=== PATIENT | male | born 1950 ===

== ENCOUNTER 2020-04-13 11:25 | Day surgery (SDC) | payer OTHER ==
[~2020-04-13] VITALS: Ht 172.7 cm; Wt 139.0 kg
[~2020-04-13 11:25] MED LIST: AMLO5; CBD OIL SL; DOC250; ERGO400; FERRETTS325 MG
[2020-04-13] MEDS ORDERED: GAVILAX17 GM (12:34)
[2020-04-13] MEDS ORDERED: BASAGLAR K100 UNIT/1 (12:35)
[2020-04-13] MEDS ORDERED: FURO40 (12:35)
--- NOTE | 2020-04-13 15:38 | NUR ---
PT IV DC'D INTACT, DRESSED, AMB TO BTR Justin GOLDSMITH, DC'D BY WC WITH SON DRIVING PT HOME
== END 2020-04-13 15:45 | disposition home or self-care (01) ==
LOC: MHTC 11:25
DX: I12.0 Hypertensive chronic kidney disease with stage 5 chronic kidney disease or end stage renal disease (principal); E11.22 Type 2 diabetes mellitus with diabetic chronic kidney disease; N18.6 End stage renal disease; E66.9 Obesity, unspecified; Z68.42 Body mass index [BMI] 45.0-49.9, adult; Z87.891 Personal history of nicotine dependence; Z88.0 Allergy status to penicillin; Z88.1 Allergy status to other antibiotic agents; Z88.8 Allergy status to other drugs, medicaments and biological substances; Z79.899 Other long term (current) drug therapy; Z79.4 Long term (current) use of insulin
CPT/HCPCS: 36558; 76937; 77001; 99152; 99153; C1750; C1769; C1894; J1644; J2250; J3010; J7040; J7050

== ENCOUNTER 2020-07-26 12:55 | Day surgery (SDC) | payer OTHER ==
[~2020-07-26] VITALS: Ht 172.7 cm; Wt 135.4 kg
[~2020-07-26 12:55] MED LIST changes: +Artificial Tear15 ML BOTHEYES; +DEXT40GEL PO; +DOC250 PO; -ERGO400; +FURO40; +GABA100 PO; +GAVILAX17 GM; +LORA10ER PO
--- NOTE | 2020-07-26 17:24 | NUR ---
Patient returned to [facility] Recovery room A&O. Denies pin."just feels a little something in the krook of his arm". dressing D&I to right inner elbow. dressing D&I to Perma cath exchange site.
--- NOTE | 2020-07-26 18:52 | NUR ---
PATIENT DISCHARGED HOME A&O. VERBALIZED UNDERSTANDING OF DISCHARGE INSTRUCTIONS AND PRECAUTIONS. SLING IN PLACE TO RIGHT ARM. DRESSINGS D&I. DENIES DICOMFORT. DISCHARGED VIA WHEEL CHAIR. SON DRIVING PATIENT HOME.
[2020-08-16] MEDS ORDERED: DEX4 GLUCOSE33 G2 PO (19:15)
[2020-08-16] MEDS ORDERED: LORA10ER PO (19:15)
[2020-08-16] MEDS ORDERED: DOC250 PO (19:16)
[2020-08-16] MEDS ORDERED: HOMATROPINE HYDR5 ML BOTHEYES (19:17)
[2020-08-16] MEDS ORDERED: MIRALAX17 GM PO (19:17)
[2020-09-18] MEDS ORDERED: ARTIFICIAL TEAR15 M2 BOTHEYES (11:32)
[2020-09-18] MEDS ORDERED: CLOP75 PO (11:32)
[2020-09-18] MEDS ORDERED: DOCU100 PO (11:33)
[2020-09-18] MEDS ORDERED: FOLIC ACID0.4 MG PO (11:33)
[2020-09-18] MEDS ORDERED: GABA100 PO (11:34)
[2020-09-18] MEDS ORDERED: DEXTROSE PO (11:39)
[2020-09-18] MEDS ORDERED: MIRALAX17 GM PO (11:40)
[2020-09-18] MEDS ORDERED: XARELTO20 MG PO (11:40)
[2020-09-18] MEDS ORDERED: ATOR40TA PO (11:40)
== END 2020-07-26 23:10 | disposition home or self-care (01) ==
LOC: MHTC 12:55
DX: T82.898A Other specified complication of vascular prosthetic devices, implants and grafts, initial encounter (principal); I12.0 Hypertensive chronic kidney disease with stage 5 chronic kidney disease or end stage renal disease; E11.22 Type 2 diabetes mellitus with diabetic chronic kidney disease; N18.6 End stage renal disease; Z88.0 Allergy status to penicillin; Z88.1 Allergy status to other antibiotic agents; Z88.2 Allergy status to sulfonamides; Z88.8 Allergy status to other drugs, medicaments and biological substances; Z20.822 Contact with and (suspected) exposure to COVID-19; Y84.0 Cardiac catheterization as the cause of abnormal reaction of the patient, or of later complication, without mention of misadventure at the time of the procedure
CPT/HCPCS: 36581; 64415; 76937; 99152; 99153; A9270; C1725; C1750; C1769; C1889; C1894; G2170; J1644; J2250; J2405; J3010; J7030; J7040

== ENCOUNTER 2020-08-05 10:32 | Observation (INO) | payer OTHER, MEDICARE ==
[~2020-08-05] VITALS: Ht 172.7 cm; Wt 131.6 kg
[2020-08-05 11:18] LABS: BASOPHILS ABSOLUTE AUTO 0.04 K/mm3 (0.00-0.23); BASOPHILS PERCENT AUTO 1 % (0-2); EOSINOPHILS ABSOLUTE AUTO 0.15 K/mm3 (0.00-0.68); EOSINOPHILS PERCENT AUTO 3 % (0-6); Hematocrit 23.2 % (37.0-53.0); Hemoglobin 7.4 g/dL (13.5-17.5); IMMATURE GRAN ABSOLUTE AUTO 0.02 K/mm3 (0.00-0.10); IMMATURE GRAN PERCENT AUTO 0 % (0-1); LYMPHOCYTES ABSOLUTE AUTO 0.99 K/mm3 (0.84-5.20); LYMPHOCYTES PERCENT AUTO 16 % (21-46); MONOCYTES ABSOLUTE AUTO 0.41 K/mm3 (0.16-1.47); MONOCYTES PERCENT AUTO 7 % (4-13); Mean Corpuscular HGB 30.7 pg (26.0-34.0); Mean Corpuscular HGB Conc 31.9 g/dL (31.5-36.5); Mean Corpuscular Volume 96 fL (80-100); NEUTROPHILS ABSOLUTE AUTO 4.45 K/mm3 (1.96-9.15); NEUTROPHILS PERCENT AUTO 73 % (41-73); Platelet Count 228 K/mm3 (150-400); RDW Standard Deviation 52.8 fL (35.1-46.3); Red Blood Cell Count 2.41 M/mm3 (4.30-5.90); White Blood Cell Count 6.06 K/mm3 (4.00-11.30)
[2020-08-05 11:36] LABS: International Normalized Ratio 1.05; Prothrombin Time Results 11.2 Sec (9.7-11.5)
[2020-08-05 11:40] LABS: Albumin, Blood 3.1 g/dL (3.4-5.0); Albumin/Globulin Ratio 0.7 (0.8-1.8); Bilirubin, Total 0.3 mg/dL (0.1-1.0); Bun/Creatinine Ratio 5.4 (12.0-20.0); Calcium, Blood 7.7 mg/dL (8.5-10.1); Creatinine, Blood 3.16 mg/dL (0.60-1.20); Globulin, Blood 4.3 g/dL (2.2-4.0); Potassium, Blood 3.1 mmol/L (3.5-5.5); Total Protein, Blood 7.4 g/dL (6.4-8.2)
[2020-08-05] MEDS ORDERED: ATOR40TA PO (14:05)
[2020-08-05] MEDS ORDERED: CLOP75 PO (14:06)
[2020-08-05] MEDS ORDERED: XARELTO2.5 M1 PO (14:06)
[2020-08-05] MEDS ORDERED: MIDO5 PO (14:18)
[2020-08-05] MEDS ORDERED: BASAGLAR K100 UNIT/7 SC (14:18)
[2020-08-05] MEDS ORDERED: Rena-Vite Tabl0.8 MG PO (14:18)
[2020-08-05] MEDS ORDERED: Vitamin D2000 UNIT PO (14:19)
[2020-08-05] MEDS ORDERED: CALC.25 PO (14:19)
[2020-08-05 14:58] LABS: Percent Saturation 12.3 % (20.0-50.0)
[2020-08-05] MEDS ORDERED: GABA100 PO (16:58)
--- NOTE | 2020-08-05 17:59 | NUR ---
SHIFT SUMMARY PATIENT ARRIVED TO THE FLOOR LATE THIS SHIFT. PATIENT ALERT AND ORIENTED. PATIENT TRANSFERED INDEPENDENTLY FROM RNEY TO BED. PATIENT AMBULATED TO BATHROOM INDEPENDENTLY. PATIENT DENIES PAIN AT THIS TIME. PATIENT FINISHING 1 UNIT OF RBC'S ON ARRIVAL TO THE UNIT. ADMISSION COMPLETED WITH PATIENT'S COOPERATION. PATIENT CURRENTLY SITTING UP IN BED ON THE TELEPHONE.
[2020-08-05 19:38] LABS: Hematocrit 25.3 % (37.0-53.0); Hemoglobin 7.9 g/dL (13.5-17.5)
[2020-08-06 02:36] LABS: BASOPHILS ABSOLUTE AUTO 0.03 K/mm3 (0.00-0.23); BASOPHILS PERCENT AUTO 0 % (0-2); EOSINOPHILS ABSOLUTE AUTO 0.17 K/mm3 (0.00-0.68); EOSINOPHILS PERCENT AUTO 2 % (0-6); Hematocrit 25.4 % (37.0-53.0); IMMATURE GRAN ABSOLUTE AUTO 0.01 K/mm3 (0.00-0.10); IMMATURE GRAN PERCENT AUTO 0 % (0-1); LYMPHOCYTES ABSOLUTE AUTO 1.36 K/mm3 (0.84-5.20); LYMPHOCYTES PERCENT AUTO 18 % (21-46); MONOCYTES ABSOLUTE AUTO 0.68 K/mm3 (0.16-1.47); MONOCYTES PERCENT AUTO 9 % (4-13); Mean Corpuscular HGB 30.3 pg (26.0-34.0); Mean Corpuscular HGB Conc 31.5 g/dL (31.5-36.5); Mean Corpuscular Volume 96 fL (80-100); Mean Platelet Volume 10.4 fL (9.1-12.4); NEUTROPHILS ABSOLUTE AUTO 5.31 K/mm3 (1.96-9.15); NEUTROPHILS PERCENT AUTO 70 % (41-73); Platelet Count 226 K/mm3 (150-400); RDW Standard Deviation 52.8 fL (35.1-46.3); Red Blood Cell Count 2.64 M/mm3 (4.30-5.90); White Blood Cell Count 7.56 K/mm3 (4.00-11.30)
[2020-08-06 02:52] LABS: Bun/Creatinine Ratio 4.7 (12.0-20.0); Calcium, Blood 7.4 mg/dL (8.5-10.1); Creatinine, Blood 5.16 mg/dL (0.60-1.20); Potassium, Blood 3.6 mmol/L (3.5-5.5)
--- NOTE | 2020-08-06 06:34 | NUR ---
SHIFT SUMMARY- PT. A&O, PLEASANT AND COOPERATIVE WITH CARE. HAD NO ACUTE CHANGES OVERNIGHT, NO COMPLAINTS OF PAIN OR DISCOMFORT. PT. REPORTED 1 NORMAL BM WITH NO BLOOD. APPEARED TO HAVE SLEPT COMFORTABLE T/O THE NIGHT WITH CPAP ON. NO APPARENT DISTRESS NOTED. VSS. CALL LIGHT WITHIN REACH AND SIDE RAILS UPX2. WILL CONT TO MONITOR.
[2020-08-06 10:22] LABS: Hematocrit 25.9 % (37.0-53.0); Hemoglobin 8.2 g/dL (13.5-17.5)
--- NOTE | 2020-08-06 16:55 | NUR ---
DISCHARGE SUMMARY PATIENT ALERT AND ORIENTED, INDEPENDENT IN THE ROOM THIS SHIFT. PATIENT COOPERATIVE WITH CARE. PATIENT AMBULATED IN THE HALLWAY MULTIPLE TIMES THIS SHIFT. PATIENT REPORTED MULTIPLE BOWEL MOVEMENTS THIS SHIFT, FREE FROM BLOOD. PATIENT PROVIDED WITH DISCHARGE AND MEDICATION INSTRUCTIONS. PATIENT QUESTIONS ANSWERED AT THIS TIME. IV REMOVED PRIOR TO DISCHARE. PATIENT'S CPAP WITH PATIENT UPON DISCHARGE. PATIENT TO SON'S VEHICLE VIA WHEELCHAIR BY NURSE.
[2020-08-16] MEDS ORDERED: DEX4 GLUCOSE33 G2 PO (19:15)
[2020-08-16] MEDS ORDERED: LORA10ER PO (19:15)
[2020-08-16] MEDS ORDERED: DOC250 PO (19:16)
[2020-08-16] MEDS ORDERED: HOMATROPINE HYDR5 ML BOTHEYES (19:17)
[2020-08-16] MEDS ORDERED: MIRALAX17 GM PO (19:17)
[2020-09-18] MEDS ORDERED: ARTIFICIAL TEAR15 M2 BOTHEYES (11:32)
[2020-09-18] MEDS ORDERED: CLOP75 PO (11:32)
[2020-09-18] MEDS ORDERED: DOCU100 PO (11:33)
[2020-09-18] MEDS ORDERED: FOLIC ACID0.4 MG PO (11:33)
[2020-09-18] MEDS ORDERED: GABA100 PO (11:34)
[2020-09-18] MEDS ORDERED: DEXTROSE PO (11:39)
[2020-09-18] MEDS ORDERED: XARELTO20 MG PO (11:40)
[2020-09-18] MEDS ORDERED: ATOR40TA PO (11:40)
[2020-09-18] MEDS ORDERED: MIRALAX17 GM PO (11:40)
== END 2020-08-06 16:35 | disposition home or self-care (01) ==
LOC: ER 10:32 → MEDS 10:33 → ERHOLD 10:33 → MEDS 16:59
PROVIDERS: Physician Assistant; ADMIT Internal Medicine
DX: D62 Acute posthemorrhagic anemia (principal); K92.1 Melena; K64.8 Other hemorrhoids; E11.22 Type 2 diabetes mellitus with diabetic chronic kidney disease; N18.6 End stage renal disease; E66.9 Obesity, unspecified; G47.33 Obstructive sleep apnea (adult) (pediatric); E78.5 Hyperlipidemia, unspecified; N40.0 Benign prostatic hyperplasia without lower urinary tract symptoms; K22.70 Barrett's esophagus without dysplasia; E87.6 Hypokalemia; M19.90 Unspecified osteoarthritis, unspecified site; Z79.4 Long term (current) use of insulin; Z99.2 Dependence on renal dialysis; Z86.73 Personal history of transient ischemic attack (TIA), and cerebral infarction without residual deficits; Z87.891 Personal history of nicotine dependence; Z86.010 Personal history of colon polyps; Z88.1 Allergy status to other antibiotic agents; Z88.0 Allergy status to penicillin; Z88.2 Allergy status to sulfonamides; Z88.8 Allergy status to other drugs, medicaments and biological substances; Z68.41 Body mass index [BMI] 40.0-44.9, adult
CPT/HCPCS: 36415; 36430; 80048; 80053; 82272; 82607; 82728; 82746; 82947; 83540; 83550; 85014; 85018; 85025; 85610; 86850; 86900; 86901; 86923; 99285-25; A9270; G0378; J7030; P9016

== ENCOUNTER 2020-08-17 08:14 | Inpatient (IN) | payer OTHER, MEDICARE ==
[~2020-08-17] VITALS: Ht 172.7 cm; Wt 132.5 kg
[~2020-08-17 08:14] MED LIST changes: +ATOR40TA PO; +BASAGLAR K100 UNIT/7 SC; +CALC.25 PO; +CLOP75 PO; +DEX4 GLUCOSE33 G2 PO; +HOMATROPINE HYDR5 ML BOTHEYES; +MIDO5 PO; +MIRALAX17 GM PO; +Rena-Vite Tabl0.8 MG PO; +Vitamin D2000 UNIT PO; +XARELTO2.5 M1 PO
--- NOTE | 2020-08-17 09:50 | NUR ---
DR CURIEL TO ROOM DISCUSSING PLAN OF CARE. NEW LAB ORDERS IN PLACE.
[2020-08-17 10:06] LABS: Hematocrit 26.1 % (37.0-53.0); Hemoglobin 8.2 g/dL (13.5-17.5)
[2020-08-17 10:20] LABS: International Normalized Ratio 1.01; Prothrombin Time Results 10.8 Sec (9.7-11.5)
--- NOTE | 2020-08-17 10:55 | NUR ---
PT RESTING COMFORTABLY. PT ADVISED TODAY'S PROCEDURE FOR PD CATHETER PLACEMENT WILL BE CANCELLED D/T LAB RESULTS. DR CURIEL IS WORKING ON GI CONSULT AT THIS TIME. VSS. NADN. PT DENIES NEEDS. CALL LIGHT WITHIN REACH.
--- NOTE | 2020-08-17 12:09 | NUR ---
GI CONSULT REQUESTED WITH DR MEHTA. PT RESTING COMFORTABLY. VSS. VERMA.
--- NOTE | 2020-08-17 13:33 | NUR ---
DR. CURIEL IN TO SEE PT, PLAN IS TO ADMIT OVERNIGHT AND HAVE GI CONSULT WITH POSSIBLE SCOPE TOMORROW.
--- NOTE | 2020-08-17 17:45 | NUR ---
PT BEING ADMITTED TO ROOM 360. HANDOFF REPORT GIVEN TO NURSE, PT TO MEDICAL FLOOR PER W/C WITH BELONGINGS IN HAND.
[2020-08-17 18:32] LABS: Hematocrit 27.2 % (37.0-53.0); Hemoglobin 8.4 g/dL (13.5-17.5)
[2020-08-17 18:48] LABS: Albumin, Blood 3.3 g/dL (3.4-5.0); Anion Gap 7 mmol/L (6-16); Blood Urea Nitrogen 54 mg/dL (8-24); Bun/Creatinine Ratio 7.2 (12.0-20.0); CO2, Blood 26 mmol/L (21-32); Chloride, Blood 106 mmol/L (98-108); Creatinine, Blood 7.45 mg/dL (0.60-1.20); Glomerular Filtration Rate 8 (60-); Glucose, Blood 99 mg/dL (70-99); Phosphorus, Blood 4.6 mg/dL (2.5-4.9); Potassium, Blood 4.6 mmol/L (3.5-5.5); Sodium, Blood 139 mmol/L (136-145)
--- NOTE | 2020-08-17 19:28 | NUR ---
ASSUMED CARE OF PATIENT UPON HIS ARRIVAL FROM THE [facility]. A&O X 4, PLEASANT. AMBULATES WITH CANE. DENIES PAIN. GIVEN NON-RED JELLO, WATER. VERBALIZED UNDERSTANDING OF PLAN FOR COLONOSCOPY TOMORROW. REPORT GIVEN TO Олег LOPEZ RN.
--- NOTE | 2020-08-17 19:53 | NUR ---
CALL TO DR. COTTO ATTEMPTED TO CONTACT DR. COTTO IN REGARDS TO PT MISSED HEMODIALYSIS TX TODAY D/T BEING ADMITTED IN HOSPITAL. AWAITING CALL BACK.
--- NOTE | 2020-08-17 23:07 | NUR ---
AT 2304, SPOKE TO EGG PROCESSING SUPERVISOR YANICK, NOTIFIED OF PT STATUS. PER PATRICK HERNDON, SHE WILL PUT PATIENT ON LIST OF DIALYSIS TX TOMORROW 08/17/2020.
[2020-08-18 05:02] LABS: Hematocrit 25.4 % (37.0-53.0)
--- NOTE | 2020-08-18 05:28 | NUR ---
CATTLE TESTER SUMMARY PT A&OX4, ABLE TO MAKE NEEDS KNOWN. PLEASANT AND COOPERATIVE TO CARE. NO C/O PAIN OR ANY DISCOMFORT THIS SHIFT. NO C/O CP, SOB, OR N&V. PT USES CPAP AT NIGHT. PT HAD 1 EPISODE OF HAVING BLOODY STOOL THIS SHIFT, APPROX 2304, PT REPORTED THAT HE HAD BLOOD IN HIS STOOL. VISIBLE BRIGHT RED BLOOD MIXED WITH FORMED STOOL NOTED IN TOILET, UNABLE TO MEASURE D/T STOOL MIXED WITH TOILET WATER. PT DENIES ANY ABDOMINAL DISCOMFORT. DENIES N&V. PT IS SCHEDULED TO HAVE A COLONOSCOPY TODAY. PT CALM AND RESTED IN BED T/O SHIFT, BED AT LOWEST POSITION. CALL LIGHT WITHIN REACH.
[2020-08-18 06:48] LABS: Influenza A, PCR Negative (NEGATIVE); Influenza B, PCR Negative (NEGATIVE); Resp Syncytial Virus, PCR Negative (NEGATIVE); SARS-Cov-2 (COVID-19) PCR, MMC Negative (NEGATIVE)
--- NOTE | 2020-08-18 09:00 | NUR ---
PT PLEASANT COOP A/O X3. STATE CONCERNED ABOUT THEIR DOG PENDING . DENIES PAIN. 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 COVERED AND DRY. STATES FISTULA R A/C AREA, STATES HAS NOT BEEN USED. PLACED RECENTLY. H/R REG, NO MURMER NOTED. NO TELE. LUNGS CLEAR, RESP EASY, UNLABORED. ON R/A. BT X4. PRESENTLY DRINKING GYLYTELY. GOING TO BATHROOM REGULARLY. NOT CLEAR AT THIS TIME. VISIBLE STOOL WITH SOME BLOOD PER JOSE ARMANDO RN. VOIDS PER BATHROOM, INDEPENDANTLY. BED IN LOW POSITION, CALL LITE IN REACH, CALLS APPROP
--- NOTE | 2020-08-18 10:57 | NUR ---
[address] ROBERTS IN ROOM. ADVISED ABOUT 1 CUP JELLIED BLOOD IN STOOL. ADVISED, NO NEW ORDERS, ASKS WE MAKE NPO 1100.
--- NOTE | 2020-08-18 10:58 | NUR ---
STOOL PREP, RUNNING CLEAR WITH YELLOW TINT NOTED. NO VISIBLE BLOOD NOTED LAST FEW STOOLS.
--- NOTE | 2020-08-18 13:44 | NUR ---
TO DAY SURG AT 1343
--- NOTE | 2020-08-18 14:33 | NUR ---
Patient up to Ambulate independently. Gait steady. History, Chart, Medications and Allergies reviewed before start of procedure.Patient confirms NPO status and agrees with scheduled surgery. Pre-Op teaching done. Pt verbalizes understanding.
--- NOTE | 2020-08-18 15:02 | NUR ---
08/18/20 1502 Liberty Reed Patient to ENDO 1. CARE BY . SEE PAPER ANESTHESIA RECORD.
--- NOTE | 2020-08-18 16:01 | NUR ---
PT JUST BACK FROM DAY SURG. ALERT TALKING. REPORT FROM GINNY NGUYEN. 1 POLYP, 500 N/S ADMIN. 330 MG PROPOFOL. STATES V/S STABLE.
--- NOTE | 2020-08-18 18:53 | NUR ---
PT QUITE PLEASANT TODAY. WENT TO DAY SURG FOR COLONOSCOPY. REMOVED POLYP X1. PT RETURNED TO ROOM. IMMEDIATELY ON DIALYSIS IN ROOM. PT NO C/O PAIN. NO OTHER CONCERNS AT THIS TIIME. BED IN LOW POSITION, CALL LITE IN REACH, CALLS APROP
--- NOTE | 2020-08-19 04:35 | NUR ---
HAT MODEL SUMMARY PT A&OX4, ABLE TO MAKE NEEDS KNOWN. PLEASANT AND COOPERATIVE TO CARE. NO C/O PAIN OR ANY DISCOMFORT THIS SHIFT. NO C/O CP, SOB, OR N&V. PT HAD DIALYSIS EARLY IN THE SHIFT, NO ISSUES OR ANY COMPLAINTS NOTED FROM PT AFTER DIALYSIS. PT INDEPENDENT IN THE ROOM. CALM AND RESTED IN BED T/O SHIFT. BED AT LOWEST POSITION. CALL LIGHT WITHIN REACH. NO ACUTE CHANGES NOTED.
[2020-08-19 05:04] LABS: BASOPHILS ABSOLUTE AUTO 0.03 K/mm3 (0.00-0.23); BASOPHILS PERCENT AUTO 1 % (0-2); EOSINOPHILS PERCENT AUTO 4 % (0-6); Hematocrit 23.8 % (37.0-53.0); Hemoglobin 7.6 g/dL (13.5-17.5); IMMATURE GRAN ABSOLUTE AUTO 0.01 K/mm3 (0.00-0.10); IMMATURE GRAN PERCENT AUTO 0 % (0-1); LYMPHOCYTES ABSOLUTE AUTO 1.17 K/mm3 (0.84-5.20); LYMPHOCYTES PERCENT AUTO 22 % (21-46); MONOCYTES ABSOLUTE AUTO 0.48 K/mm3 (0.16-1.47); MONOCYTES PERCENT AUTO 9 % (4-13); Mean Corpuscular HGB 29.7 pg (26.0-34.0); Mean Corpuscular HGB Conc 31.9 g/dL (31.5-36.5); Mean Corpuscular Volume 93 fL (80-100); Mean Platelet Volume 10.8 fL (9.1-12.4); NEUTROPHILS ABSOLUTE AUTO 3.41 K/mm3 (1.96-9.15); NEUTROPHILS PERCENT AUTO 64 % (41-73); Platelet Count 189 K/mm3 (150-400); RDW Coefficient Variation 13.1 % (11.7-14.2); RDW Standard Deviation 44.7 fL (35.1-46.3); Red Blood Cell Count 2.56 M/mm3 (4.30-5.90)
[2020-08-19 06:16] LABS: Albumin, Blood 2.9 g/dL (3.4-5.0); Albumin/Globulin Ratio 0.7 (0.8-1.8); Bilirubin, Total 0.3 mg/dL (0.1-1.0); Bun/Creatinine Ratio 5.5 (12.0-20.0); Calcium, Blood 7.5 mg/dL (8.5-10.1); Creatinine, Blood 6.41 mg/dL (0.60-1.20); Globulin, Blood 3.9 g/dL (2.2-4.0); Magnesium, Blood 1.9 mg/dL (1.6-2.4); Percent Saturation 12.8 % (20.0-50.0); Phosphorus, Blood 4.7 mg/dL (2.5-4.9); Total Protein, Blood 6.8 g/dL (6.4-8.2)
--- NOTE | 2020-08-19 16:38 | NUR ---
SHIFT SUMMARY PT A&O AND ABLE TO MAKE NEEDS KNOWN AND ACCEPTING OF CARE. PT IS INDEPENDENT IN ROOM. PT TOOK A SHOWER THIS SHIFT. PT COMPLAINED OF PAIN IN THE RECTUM AND HAD 1 BLOODY BM. HE DENIES N/V. IV FLUSHED AND PATIENT. PLAN IS FOR PT TO HAVE DIALYSIS 08/20 AND D/C AFTERWARDS. PT IN ROOM WITH FAMILY VISITING. CALL LIGHT W/IN REACH.
--- NOTE | 2020-08-19 23:08 | NUR ---
PT COMPLAINING OF MULTIPLE BLOODY BOWEL MOVEMENTS AND FEELINGS OF INDIGESTION. HE STATES THAT WHEN HE WAS WALKING BACK FROM THE BATHROOM HE FELT VERY DIZZY AND LIGHTHEADED, TO THE POINT HE FELT HE MAY PASS OUT. DR. COTTO NOTIFIED AND ORDER OBTAINED TO DRAW STAT H&H AND CALL BACK WITH RESULTS.
[2020-08-19 23:21] LABS: Hematocrit 24.5 % (37.0-53.0)
[2020-08-20 04:47] LABS: Hematocrit 22.9 % (37.0-53.0); Hemoglobin 7.5 g/dL (13.5-17.5)
[2020-08-20 05:06] LABS: Anion Gap 6 mmol/L (6-16); Blood Urea Nitrogen 45 mg/dL (8-24); Bun/Creatinine Ratio 5.6 (12.0-20.0); CO2, Blood 28 mmol/L (21-32); Calcium, Blood 7.6 mg/dL (8.5-10.1); Chloride, Blood 103 mmol/L (98-108); Creatinine, Blood 7.98 mg/dL (0.60-1.20); Glomerular Filtration Rate 7 (60-); Glucose, Blood 137 mg/dL (70-99); Magnesium, Blood 2.2 mg/dL (1.6-2.4); Phosphorus, Blood 5.7 mg/dL (2.5-4.9); Sodium, Blood 137 mmol/L (136-145)
--- NOTE | 2020-08-20 07:05 | NUR ---
SHIFT SUMMARY: "ANDI" IS A&OX4. VSS. HE REPORTS FEELING SIGNIFICANTLY BETTER THIS MORNING. HE STATES THAT THE ABDOMINAL DISCOMFORT HAS RESOLVED AND THAT THE DIAPHORESIS RESOLVED. HE HAS NOT ATTEMPTED TO GET UP AND WAS REMINDED THAT THE BED ALARM IS ON TO REMIND HIM TO CALL STAFF BEFORE TRANSFERRING D/T HIS FEELING OF IMPENDING SYNCOPE. HE DID NOT HAVE A SYNCOPAL EPISODE. HE REPORTED THREE BOWEL MOVEMENTS THIS SHIFT WHICH WERE BLOODY. IV TO L AC PATENT. HE DID WEAR THE CPAP DURING THE NIGHT. HE IS LYING IN BED WITH THE CALL LIGHT IN REACH. HE DOES USE THE CALL LIGHT APPROPRIATELY. WILL REPORT TO DAY SHIFT RN.
[2020-08-20] MEDS ORDERED: MIRALAX17 GM PO (13:39)
--- NOTE | 2020-08-20 14:33 | NUR ---
DISCHARGE DISCHARGE MEDICATIONS AND INSTRUCTIONS EXPLAINED TO PATIENT. PATIENT STATED UNDERSTANDING. PATIENT TO CALL PCP FOR FOLLOW UP ON FRIDAY. DIALYSIUS AT [facility] ON FRIDAY. IV REMOVED WITHOUT ISSUE. BELONGINGS WITH PATIENT. PATIENT TRANSFERED TO PRIVATE VEHICLE VIA WHEELCHAIR.
[2020-09-18] MEDS ORDERED: ARTIFICIAL TEAR15 M2 BOTHEYES (11:32)
[2020-09-18] MEDS ORDERED: CLOP75 PO (11:32)
[2020-09-18] MEDS ORDERED: DOCU100 PO (11:33)
[2020-09-18] MEDS ORDERED: FOLIC ACID0.4 MG PO (11:33)
[2020-09-18] MEDS ORDERED: GABA100 PO (11:34)
[2020-09-18] MEDS ORDERED: DEXTROSE PO (11:39)
[2020-09-18] MEDS ORDERED: XARELTO20 MG PO (11:40)
[2020-09-18] MEDS ORDERED: MIRALAX17 GM PO (11:40)
[2020-09-18] MEDS ORDERED: ATOR40TA PO (11:40)
== END 2020-08-20 14:24 | disposition home or self-care (01) | DRG 393 ==
LOC: MHTC 08:14 → MEDS 14:00
PROVIDERS: Internal Medicine Gastroenterology; Internal Medicine Nephrology; Radiology Diagnostic Radiology; ADMIT Internal Medicine
PROC: 5A1D70Z Performance of Urinary Filtration, Intermittent, Less than 6 Hours Per Day (ICD-10-PCS; 2020-08-18)
PROC: 0DBL8ZZ Excision of Transverse Colon, Via Natural or Artificial Opening Endoscopic (ICD-10-PCS; principal; 2020-08-18 09:30)
PROC: 5A1D70Z Performance of Urinary Filtration, Intermittent, Less than 6 Hours Per Day (ICD-10-PCS; 2020-08-20)
DX: K64.4 Residual hemorrhoidal skin tags (principal); N18.6 End stage renal disease; D62 Acute posthemorrhagic anemia; Z68.42 Body mass index [BMI] 45.0-49.9, adult; J30.9 Allergic rhinitis, unspecified; E11.22 Type 2 diabetes mellitus with diabetic chronic kidney disease; Z79.4 Long term (current) use of insulin; E66.01 Morbid (severe) obesity due to excess calories; Z99.2 Dependence on renal dialysis; E88.09 Other disorders of plasma-protein metabolism, not elsewhere classified; K57.30 Diverticulosis of large intestine without perforation or abscess without bleeding; N40.0 Benign prostatic hyperplasia without lower urinary tract symptoms
CPT/HCPCS: 0241U; 36415; 36430; 80053; 80069; 82607; 82728; 82746; 82947; 83540; 83550; 83735; 84100; 85014; 85018; 85025; 85610; 86850; 86900; 86901; 86923; 88305; 93005; 93010; A9270; J0881; J2405; J2704; J7030; P9016

== ENCOUNTER 2020-08-23 00:37 | Day surgery (SDC) | payer OTHER, MEDICARE ==
[2020-08-23] MEDS ORDERED: RENAL VITAMIN0.8 MG PO (07:57)
--- NOTE | 2020-08-23 08:14 | NUR ---
IV START GALEN CHUN RN TRAINING
--- NOTE | 2020-08-23 08:18 | NUR ---
PT SELF ADMINISTERED MIDODRINE @ 0814 FOR BP UNDER 130. PER HIS INSTUCTIONS FROM HIS MD.
[2020-09-18] MEDS ORDERED: ARTIFICIAL TEAR15 M2 BOTHEYES (11:32)
[2020-09-18] MEDS ORDERED: CLOP75 PO (11:32)
[2020-09-18] MEDS ORDERED: FOLIC ACID0.4 MG PO (11:33)
[2020-09-18] MEDS ORDERED: DOCU100 PO (11:33)
[2020-09-18] MEDS ORDERED: GABA100 PO (11:34)
[2020-09-18] MEDS ORDERED: DEXTROSE PO (11:39)
[2020-09-18] MEDS ORDERED: XARELTO20 MG PO (11:40)
[2020-09-18] MEDS ORDERED: MIRALAX17 GM PO (11:40)
[2020-09-18] MEDS ORDERED: ATOR40TA PO (11:40)
== END 2020-08-23 09:55 | disposition home or self-care (01) ==
LOC: ATC 00:37
DX: D62 Acute posthemorrhagic anemia (principal); N18.6 End stage renal disease; E11.22 Type 2 diabetes mellitus with diabetic chronic kidney disease; K22.70 Barrett's esophagus without dysplasia; E87.6 Hypokalemia; N40.0 Benign prostatic hyperplasia without lower urinary tract symptoms; G47.33 Obstructive sleep apnea (adult) (pediatric); E78.5 Hyperlipidemia, unspecified; E66.9 Obesity, unspecified; Z88.1 Allergy status to other antibiotic agents; Z99.89 Dependence on other enabling machines and devices; Z99.2 Dependence on renal dialysis; Z88.0 Allergy status to penicillin; Z88.2 Allergy status to sulfonamides; Z88.8 Allergy status to other drugs, medicaments and biological substances; Z79.4 Long term (current) use of insulin; Z79.02 Long term (current) use of antithrombotics/antiplatelets; Z79.01 Long term (current) use of anticoagulants
CPT/HCPCS: 36415; 36430; 86850; 86900; 86901; 86923; J7050; P9016

== ENCOUNTER 2020-09-09 00:27 | Day surgery (SDC) | payer OTHER, MEDICARE ==
[~2020-09-09 00:27] MED LIST changes: +RENAL VITAMIN0.8 MG PO
[2020-09-18] MEDS ORDERED: ARTIFICIAL TEAR15 M2 BOTHEYES (11:32)
[2020-09-18] MEDS ORDERED: CLOP75 PO (11:32)
[2020-09-18] MEDS ORDERED: FOLIC ACID0.4 MG PO (11:33)
[2020-09-18] MEDS ORDERED: DOCU100 PO (11:33)
[2020-09-18] MEDS ORDERED: GABA100 PO (11:34)
[2020-09-18] MEDS ORDERED: DEXTROSE PO (11:39)
[2020-09-18] MEDS ORDERED: MIRALAX17 GM PO (11:40)
[2020-09-18] MEDS ORDERED: ATOR40TA PO (11:40)
[2020-09-18] MEDS ORDERED: XARELTO20 MG PO (11:40)
== END 2020-09-09 17:45 | disposition home or self-care (01) ==
LOC: ATC 00:27
DX: D62 Acute posthemorrhagic anemia (principal); E11.22 Type 2 diabetes mellitus with diabetic chronic kidney disease; N18.6 End stage renal disease; E66.9 Obesity, unspecified; G47.33 Obstructive sleep apnea (adult) (pediatric); M19.90 Unspecified osteoarthritis, unspecified site; Z99.2 Dependence on renal dialysis; Z88.1 Allergy status to other antibiotic agents; Z88.0 Allergy status to penicillin; Z88.2 Allergy status to sulfonamides; Z88.8 Allergy status to other drugs, medicaments and biological substances; Z79.4 Long term (current) use of insulin; Z86.010 Personal history of colon polyps; Z87.19 Personal history of other diseases of the digestive system
CPT/HCPCS: 36415; 36430; 86850; 86900; 86901; 86923; J7050; P9016

== ENCOUNTER 2020-09-20 08:38 | Day surgery (SDC) | payer OTHER, MEDICARE ==
[~2020-09-20] VITALS: Ht 172.7 cm; Wt 132.6 kg
[~2020-09-20 08:38] MED LIST changes: +ARTIFICIAL TEAR15 M2 BOTHEYES; +DEXTROSE PO; +DOCU100 PO; +FOLIC ACID0.4 MG PO; +XARELTO20 MG PO
[2020-09-20] MEDS ORDERED: ALLERCLEAR10 MG PO (09:21)
--- NOTE | 2020-09-20 09:50 | NUR ---
History, Chart, Medications and Allergies reviewed before start of procedure. Lungs clear T/O to Auscultation. Pre-Op teaching done. Pt verbalizes understanding.
[2020-09-20 10:12] LABS: BASOPHILS ABSOLUTE AUTO 0.05 K/mm3 (0.00-0.23); BASOPHILS PERCENT AUTO 1 % (0-2); EOSINOPHILS ABSOLUTE AUTO 0.16 K/mm3 (0.00-0.68); EOSINOPHILS PERCENT AUTO 2 % (0-6); Hematocrit 28.2 % (37.0-53.0); Hemoglobin 9.1 g/dL (13.5-17.5); IMMATURE GRAN ABSOLUTE AUTO 0.02 K/mm3 (0.00-0.10); IMMATURE GRAN PERCENT AUTO 0 % (0-1); LYMPHOCYTES ABSOLUTE AUTO 1.07 K/mm3 (0.84-5.20); LYMPHOCYTES PERCENT AUTO 16 % (21-46); MONOCYTES ABSOLUTE AUTO 0.57 K/mm3 (0.16-1.47); MONOCYTES PERCENT AUTO 8 % (4-13); Mean Corpuscular HGB 29.1 pg (26.0-34.0); Mean Corpuscular HGB Conc 32.3 g/dL (31.5-36.5); Mean Corpuscular Volume 90 fL (80-100); Mean Platelet Volume 10.5 fL (9.1-12.4); NEUTROPHILS ABSOLUTE AUTO 5.05 K/mm3 (1.96-9.15); NEUTROPHILS PERCENT AUTO 73 % (41-73); Platelet Count 223 K/mm3 (150-400); RDW Coefficient Variation 14.4 % (11.7-14.2); RDW Standard Deviation 46.5 fL (35.1-46.3); Red Blood Cell Count 3.13 M/mm3 (4.30-5.90); White Blood Cell Count 6.92 K/mm3 (4.00-11.30)
[2020-09-20 10:28] LABS: Bun/Creatinine Ratio 5.6 (12.0-20.0); Calcium, Blood 7.4 mg/dL (8.5-10.1); Creatinine, Blood 6.91 mg/dL (0.60-1.20); Potassium, Blood 4.3 mmol/L (3.5-5.5)
--- NOTE | 2020-09-20 15:12 | NUR ---
Patient up to Ambulate WITH PERSONAL CANE AND STAND BY ASSIST FROM RN. STEADY GAIT. Discharge instructions reviewed with patient. Patient verbalizes understanding. Copy given to patient to take home. REVIEWED WITH SON VIA TELEPHONE PER PT REQUEST. Discharged via wheelchair to private car for ride home WITH SON. PT GIVEN SITZ BATH AND CLEANING BOTTLE AND INSTRUCTED ON USE. PERIPADS GIVEN PER PT REQUEST.
== END 2020-09-20 15:02 | disposition home or self-care (01) ==
LOC: ORSCMMR 08:38 → ORD 10:00 → ORSCMMR 15:02
PROVIDERS: Surgery
PROC: 06BY0ZC Excision of Hemorrhoidal Plexus, Open Approach (ICD-10-PCS; principal; 2020-09-20 10:00)
DX: K64.4 Residual hemorrhoidal skin tags (principal); D64.9 Anemia, unspecified; K64.8 Other hemorrhoids; I10 Essential (primary) hypertension; I25.2 Old myocardial infarction; I25.10 Atherosclerotic heart disease of native coronary artery without angina pectoris; K22.70 Barrett's esophagus without dysplasia; E66.9 Obesity, unspecified; Z68.41 Body mass index [BMI] 40.0-44.9, adult; G47.33 Obstructive sleep apnea (adult) (pediatric); F51.9 Sleep disorder not due to a substance or known physiological condition, unspecified; E11.9 Type 2 diabetes mellitus without complications; Z79.4 Long term (current) use of insulin; Z79.01 Long term (current) use of anticoagulants; Z79.899 Other long term (current) drug therapy
CPT/HCPCS: 80048; 82947; 85025; 88304; J0694; J2250; J2405; J2765; J3010; J7030

== ENCOUNTER 2020-09-27 00:12 | Day surgery (SDC) | payer OTHER, MEDICARE ==
[~2020-09-27 00:12] MED LIST changes: +ALLERCLEAR10 MG PO
== END 2020-09-27 17:35 | disposition home or self-care (01) ==
LOC: ATC 00:12
DX: D50.9 Iron deficiency anemia, unspecified (principal); E11.22 Type 2 diabetes mellitus with diabetic chronic kidney disease; I12.0 Hypertensive chronic kidney disease with stage 5 chronic kidney disease or end stage renal disease; N18.6 End stage renal disease; Z79.4 Long term (current) use of insulin; Z88.1 Allergy status to other antibiotic agents; Z88.0 Allergy status to penicillin; Z88.2 Allergy status to sulfonamides; Z88.8 Allergy status to other drugs, medicaments and biological substances; Z99.2 Dependence on renal dialysis
CPT/HCPCS: 36415; 36430; 86850; 86900; 86901; 86923; J7050; P9016

== ENCOUNTER → 2021-03-13 | Outpatient (CLI) | payer OTHER, MEDICARE | END | disposition home or self-care (01) | LOC: LAB DAV 09:57 | DX: M10.021 Idiopathic gout, right elbow (principal) | CPT/HCPCS: 84550 ==

== ENCOUNTER 2021-10-22 10:25 | Day surgery (SDC) | payer OTHER ==
[~2021-10-22] VITALS: Ht 172.7 cm; Wt 138.0 kg
[2021-10-22] MEDS ORDERED: SEVEC800 PO (11:08)
[2021-10-22] MEDS ORDERED: Calcium Acetat667 MG PO (11:09)
--- NOTE | 2021-10-22 12:42 | NUR ---
PATIENT RETURNED FROM THE LAB. DRESSING TO THE RIGHT UPPER CHEST WALL C/D/I. WILFRIDO HAD NAUSEA IN THE LAB BUT STATES "IS BETTER NOW". WATER PLACED AT THE BEDSIDE. CALL LIGHT IN REACH. MONITOR APPLIED TO PATIENT. VVS. SIDE RAILS UP X TWO. SBAR RECEIVED FROM PATRICK MCDUFFIE AND OCTOBER, RT.
--- NOTE | 2021-10-22 13:17 | NUR ---
PATIENT SITTING UP ON THE SIDE OF THE BED. OFF THE MONITOR. LUNCH TRAY SERVED. CALL LANCE GTZ AND SET UP FOR DISCHARGE AT 1345 AT THE [facility].
--- NOTE | 2021-10-22 13:35 | NUR ---
PT AMB TO BATHROOM, GAIT STEADY.
--- NOTE | 2021-10-22 13:40 | NUR ---
PT DRESSED SELF WITHOUT ISSUE, SITE UNCHANGED; IV REMOVED-CANNULA INTACT.
--- NOTE | 2021-10-22 13:46 | NUR ---
PT RECEIVED DISCHARGE INSTRUCTIONS, MED LIST AND AFTER CARE INSTRUCTIONS; VERBALIZED GOOD UNDERSTANDING. PT LEFT FACILITY VIA W/C, CONDITION STABLE.
== END 2021-10-22 13:46 | disposition home or self-care (01) ==
LOC: MHTC 10:25
DX: T82.848A Pain due to vascular prosthetic devices, implants and grafts, initial encounter (principal); I12.0 Hypertensive chronic kidney disease with stage 5 chronic kidney disease or end stage renal disease; E11.22 Type 2 diabetes mellitus with diabetic chronic kidney disease; N18.6 End stage renal disease; I25.10 Atherosclerotic heart disease of native coronary artery without angina pectoris; E78.5 Hyperlipidemia, unspecified; G47.33 Obstructive sleep apnea (adult) (pediatric); M19.90 Unspecified osteoarthritis, unspecified site; E66.9 Obesity, unspecified; Y82.8 Other medical devices associated with adverse incidents; Z99.2 Dependence on renal dialysis; Z79.4 Long term (current) use of insulin; Z88.1 Allergy status to other antibiotic agents; Z88.0 Allergy status to penicillin; Z88.2 Allergy status to sulfonamides; Z88.8 Allergy status to other drugs, medicaments and biological substances
CPT/HCPCS: 99152; 99153; C1725; C1750; C1769; J1644; J2250; J2405; J3010; J7030; Q9967

== ENCOUNTER 2021-10-30 11:19 | Emergency (ER) | payer OTHER ==
[~2021-10-30] VITALS: Ht 172.7 cm; Wt 133.0 kg
[~2021-10-30 11:19] MED LIST changes: +Calcium Acetat667 MG PO; +SEVEC800 PO
[2021-10-30 13:01] LABS: BASOPHILS ABSOLUTE AUTO 0.04 K/mm3 (0.00-0.23); BASOPHILS PERCENT AUTO 0 % (0-2); EOSINOPHILS PERCENT AUTO 0 % (0-6); Hemoglobin 10.8 g/dL (13.5-17.5); IMMATURE GRAN ABSOLUTE AUTO 0.07 K/mm3 (0.00-0.10); IMMATURE GRAN PERCENT AUTO 1 % (0-1); LYMPHOCYTES ABSOLUTE AUTO 0.65 K/mm3 (0.84-5.20); LYMPHOCYTES PERCENT AUTO 5 % (21-46); MONOCYTES ABSOLUTE AUTO 0.99 K/mm3 (0.16-1.47); MONOCYTES PERCENT AUTO 7 % (4-13); Mean Corpuscular HGB 29.6 pg (26.0-34.0); Mean Corpuscular HGB Conc 33.8 g/dL (31.5-36.5); Mean Corpuscular Volume 88 fL (80-100); Mean Platelet Volume 10.9 fL (9.1-12.4); NEUTROPHILS ABSOLUTE AUTO 12.26 K/mm3 (1.96-9.15); NEUTROPHILS PERCENT AUTO 88 % (41-73); Platelet Count 195 K/mm3 (150-400); RDW Coefficient Variation 13.5 % (11.7-14.2); RDW Standard Deviation 43.8 fL (35.1-46.3); Red Blood Cell Count 3.65 M/mm3 (4.30-5.90); White Blood Cell Count 14.01 K/mm3 (4.00-11.30)
[2021-10-30 14:29] LABS: Albumin, Blood 2.7 g/dL (3.4-5.0); Albumin/Globulin Ratio 0.5 (0.8-1.8); Bilirubin, Total 0.4 mg/dL (0.1-1.0); Bun/Creatinine Ratio 4.5 (12.0-20.0); Calcium, Blood 8.5 mg/dL (8.5-10.1); Creatinine, Blood 9.35 mg/dL (0.60-1.20); Globulin, Blood 5.2 g/dL (2.2-4.0); Potassium, Blood 3.3 mmol/L (3.5-5.5); Total Protein, Blood 7.9 g/dL (6.4-8.2)
== END 2021-10-30 16:46 | disposition home or self-care (01) ==
LOC: ER 11:19
PROVIDERS: Emergency Medicine
DX: U07.1 COVID-19 (principal); N18.6 End stage renal disease; Z88.0 Allergy status to penicillin; Z88.1 Allergy status to other antibiotic agents; Z88.8 Allergy status to other drugs, medicaments and biological substances; Z79.4 Long term (current) use of insulin
CPT/HCPCS: 36415; 80053; 85025

== ENCOUNTER 2021-11-01 06:18 | Emergency (ER) | payer OTHER ==
[~2021-11-01] VITALS: Ht 172.7 cm; Wt 133.0 kg
[2021-11-01 08:30] LABS: BASOPHILS ABSOLUTE AUTO 0.02 K/mm3 (0.00-0.23); BASOPHILS PERCENT AUTO 0 % (0-2); EOSINOPHILS ABSOLUTE AUTO 0.01 K/mm3 (0.00-0.68); EOSINOPHILS PERCENT AUTO 0 % (0-6); Hematocrit 29.8 % (37.0-53.0); Hemoglobin 10.1 g/dL (13.5-17.5); IMMATURE GRAN ABSOLUTE AUTO 0.41 K/mm3 (0.00-0.10); IMMATURE GRAN PERCENT AUTO 2 % (0-1); LYMPHOCYTES ABSOLUTE AUTO 0.56 K/mm3 (0.84-5.20); LYMPHOCYTES PERCENT AUTO 3 % (21-46); MONOCYTES ABSOLUTE AUTO 0.97 K/mm3 (0.16-1.47); MONOCYTES PERCENT AUTO 5 % (4-13); Mean Corpuscular HGB Conc 33.9 g/dL (31.5-36.5); Mean Corpuscular Volume 88 fL (80-100); Mean Platelet Volume 11.1 fL (9.1-12.4); NEUTROPHILS ABSOLUTE AUTO 16.68 K/mm3 (1.96-9.15); NEUTROPHILS PERCENT AUTO 89 % (41-73); Platelet Count 263 K/mm3 (150-400); RDW Coefficient Variation 13.6 % (11.7-14.2); RDW Standard Deviation 44.3 fL (35.1-46.3); Red Blood Cell Count 3.37 M/mm3 (4.30-5.90); White Blood Cell Count 18.65 K/mm3 (4.00-11.30)
[2021-11-01 08:56] LABS: Albumin, Blood 2.4 g/dL (3.4-5.0); Albumin/Globulin Ratio 0.4 (0.8-1.8); Bilirubin, Total 0.5 mg/dL (0.1-1.0); Bun/Creatinine Ratio 5.1 (12.0-20.0); Calcium, Blood 8.5 mg/dL (8.5-10.1); Creatinine, Blood 15.3 mg/dL (0.60-1.20); Globulin, Blood 5.4 g/dL (2.2-4.0); Potassium, Blood 3.9 mmol/L (3.5-5.5); Total Protein, Blood 7.8 g/dL (6.4-8.2)
[2021-11-01] MEDS ORDERED: ONDA4ODT MM (10:12)
== END 2021-11-01 11:15 | disposition home or self-care (01) ==
LOC: ER 06:18
PROVIDERS: Emergency Medicine
DX: U07.1 COVID-19 (principal); E86.0 Dehydration; N18.6 End stage renal disease; Z99.2 Dependence on renal dialysis; Z88.0 Allergy status to penicillin; Z79.4 Long term (current) use of insulin; Z79.899 Other long term (current) drug therapy
CPT/HCPCS: 36415; 80053; 85025; 99284; J7030

== ENCOUNTER 2021-11-03 21:39 | Inpatient (IN) | payer OTHER ==
[~2021-11-03] VITALS: Ht 172.7 cm; Wt 127.9 kg
[~2021-11-03 21:39] MED LIST changes: +ONDA4ODT MM
[2021-11-03 22:18] LABS: BASOPHILS ABSOLUTE AUTO 0.04 K/mm3 (0.00-0.23); BASOPHILS PERCENT AUTO 0 % (0-2); EOSINOPHILS ABSOLUTE AUTO 0.02 K/mm3 (0.00-0.68); EOSINOPHILS PERCENT AUTO 0 % (0-6); Hematocrit 29.3 % (37.0-53.0); Hemoglobin 9.3 g/dL (13.5-17.5); IMMATURE GRAN ABSOLUTE AUTO 0.44 K/mm3 (0.00-0.10); IMMATURE GRAN PERCENT AUTO 2 % (0-1); LYMPHOCYTES PERCENT AUTO 3 % (21-46); MONOCYTES ABSOLUTE AUTO 1.21 K/mm3 (0.16-1.47); MONOCYTES PERCENT AUTO 6 % (4-13); Mean Corpuscular HGB 29.2 pg (26.0-34.0); Mean Corpuscular HGB Conc 31.7 g/dL (31.5-36.5); Mean Corpuscular Volume 92 fL (80-100); Mean Platelet Volume 10.7 fL (9.1-12.4); NEUTROPHILS ABSOLUTE AUTO 19.13 K/mm3 (1.96-9.15); NEUTROPHILS PERCENT AUTO 89 % (41-73); NRBC ABSOLUTE 0.04 K/mm3 (0.00-0.02); NRBC Auto 0.2 /100 WBC (0.0-0.2); Platelet Count 337 K/mm3 (150-400); RDW Coefficient Variation 13.8 % (11.7-14.2); RDW Standard Deviation 46.8 fL (35.1-46.3); Red Blood Cell Count 3.18 M/mm3 (4.30-5.90); White Blood Cell Count 21.44 K/mm3 (4.00-11.30)
[2021-11-03 22:30] LABS: Albumin, Blood 1.9 g/dL (3.4-5.0); Albumin/Globulin Ratio 0.4 (0.8-1.8); Bilirubin, Total 0.7 mg/dL (0.1-1.0); Calcium, Blood 8.8 mg/dL (8.5-10.1); Creatinine, Blood 7.38 mg/dL (0.60-1.20); Globulin, Blood 5.4 g/dL (2.2-4.0); Phosphorus, Blood 5.5 mg/dL (2.5-4.9); Potassium, Blood 3.8 mmol/L (3.5-5.5); Total Protein, Blood 7.3 g/dL (6.4-8.2)
[2021-11-03 23:54] LABS: Source, Urine Straight Cath
[2021-11-04 00:10] LABS: International Normalized Ratio 1.16; Prothrombin Time Results 12.1 Sec (9.7-11.5)
[2021-11-04 00:11] LABS: Bilirubin, Urine Neg (Neg); Blood, Urine 5+ (Neg); Glucose Qualitative, Urine Neg (Neg); Ketones, Urine Neg (Neg); Leukocyte Esterase, Urine 3+ (Neg); Nitrite, Urine Neg (Neg); Protein, Urine 4+ (Neg); Specific Gravity, Urine 1.015 (1.003-1.022); Urobilinogen, Urine NORM (Normal); pH, Urine 6.5 (5.0-8.0)
[2021-11-04 01:00] LABS: Appearance, Urine Cloudy (Clear); Color, Urine Yellow (P-Yellow)
[2021-11-04 01:01] LABS: Bacteria Many /hpf; Red Blood Cells, Urine 25-50 /hpf (0-2); Squamous Epithelial Cells Rare /hpf (Few); White Blood Cells, Urine TNTC /hpf (0-5)
[2021-11-04 03:29] LABS: BASOPHILS ABSOLUTE AUTO 0.03 K/mm3 (0.00-0.23); BASOPHILS PERCENT AUTO 0 % (0-2); EOSINOPHILS ABSOLUTE AUTO 0.04 K/mm3 (0.00-0.68); EOSINOPHILS PERCENT AUTO 0 % (0-6); Hematocrit 29.2 % (37.0-53.0); Hemoglobin 9.3 g/dL (13.5-17.5); IMMATURE GRAN ABSOLUTE AUTO 0.36 K/mm3 (0.00-0.10); IMMATURE GRAN PERCENT AUTO 2 % (0-1); LYMPHOCYTES ABSOLUTE AUTO 0.68 K/mm3 (0.84-5.20); LYMPHOCYTES PERCENT AUTO 4 % (21-46); MONOCYTES PERCENT AUTO 7 % (4-13); Mean Corpuscular HGB 29.2 pg (26.0-34.0); Mean Corpuscular HGB Conc 31.8 g/dL (31.5-36.5); Mean Corpuscular Volume 92 fL (80-100); Mean Platelet Volume 10.7 fL (9.1-12.4); NEUTROPHILS ABSOLUTE AUTO 17.15 K/mm3 (1.96-9.15); NEUTROPHILS PERCENT AUTO 88 % (41-73); NRBC ABSOLUTE 0.04 K/mm3 (0.00-0.02); NRBC Auto 0.2 /100 WBC (0.0-0.2); Platelet Count 320 K/mm3 (150-400); RDW Coefficient Variation 13.9 % (11.7-14.2); RDW Standard Deviation 47.5 fL (35.1-46.3); Red Blood Cell Count 3.18 M/mm3 (4.30-5.90); White Blood Cell Count 19.56 K/mm3 (4.00-11.30)
[2021-11-04 04:57] LABS: Albumin, Blood 1.9 g/dL (3.4-5.0); Albumin/Globulin Ratio 0.4 (0.8-1.8); Bilirubin, Total 0.6 mg/dL (0.1-1.0); Bun/Creatinine Ratio 6.4 (12.0-20.0); Calcium, Blood 8.3 mg/dL (8.5-10.1); Creatinine, Blood 8.03 mg/dL (0.60-1.20); Globulin, Blood 5.2 g/dL (2.2-4.0); Potassium, Blood 3.7 mmol/L (3.5-5.5); Total Protein, Blood 7.1 g/dL (6.4-8.2)
--- NOTE | 2021-11-04 05:57 | NUR ---
ASSUMED CARE/SHIFT SUMMARY RECEIVED REPORT FROM PATRICK RICO IN ED AT 0245. PT ARRIVED TO PCU AT 0310. PT WEARING 4L NC O2, SPO2 100%. LUNG SOUNDS CLEAR IN UPPER LOBES, DIMINISHED IN BASES. DENIES SOB, ONLY EXERTIONAL. HE IS A/O X4, STATES HE IS VERY TIRED, BUT RESPONDS APPROPRIATELY, FOLLOWS DIRECTIONS WELL, BUT VERY WEAK. HR IS AFIB, RATE 100-130'S. BP IS HYPOTENSIVE, MAP <65. RECEIVED 1L BOLUS IN ED, AND RECEIVED 1500ML BOLUS ONCE ARRIVED TO PCU, NS NOW INFUSING AT 75ML/HR. ALBUMIN 25GM GIVEN AND MIDODRINE GIVEN. MAP SLOWLY IMPROVING. PT RECEIVED DIALYSIS YESTERDAY, UNSURE HOW MUCH OFF. 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 HE HAS PERMACATH TO RIGHT CHEST WALL, NO 3RD LUMEN. SINCE TRANSFERRED FROM ED, HE HAS HAD 2 SMALL, LIQUID DIARRHEA BOWEL MOVEMENTS. HE STATES HE HAS HAD DIARRHEA FOR A FEW WEEKS NOW SINCE HAVING COVID OVER 3 WEEKS AGO. WAS TESTED AT OR. HE WAS FEBRILE IN ED, BUT CURRENT TEMP OF 98.6, AND HE IS DIAPHORETIC THROUGHOUT ENTIRE BODY. SINCE GOWN CHANGE, SWEATING HAS DECREASED. PT IS OLIGURIC, AND STATES NORMAL FOR HIM DUE TO CKD. SKIN IS OVERALL C/D/I. STATE HE USES CANE AT HOME AND WHEELCHAIR WHEN OUT IN PUBLIC. CRITICAL CREATININE OF 8.030 THIS AM, DR. FINCH NOTIFIED, NO NEW ORDERS. SON, LANCE, NOTIFIED THAT THE PT IS IN THE PCU AND WILL BRING MEDICATIONS FROM HOME TO COMPLETE ADMISSION MED LIST. [facility] WHEN [facility].
[2021-11-04] MEDS ORDERED: SEVEC800 PO (13:14)
--- NOTE | 2021-11-04 17:30 | NUR ---
SHIFT SUMMARY; ASSUMED CARE AT 0700. A/A/OX3 DURING SHIFT. 2L O2 VIA NC. SON BROUGHT CPAP FOR NOC USE. REPOSITIONS SELF IN BED THROUGHOUT SHIFT. REMAINS WEAK. HR AFIB 120-130'S. SPOKE WITH DR. BAY, ECHO ORDERED, WILL CONTINUE TO MONITOR AND REPORT TO HER IF HEART STARTS TO INCREASE T0 140'S. POSITIVE BLOOD CULTURES TODAY, ABX STARTED. ATTENDS IN PLACE, NO URINE OUTPUT ON SHIFT. CURRENT DIALYSIS PT. VSS, WILL CONTINUE TO MONITOR AND TREAT UNTIL CHANGE OF SHIFT.
--- NOTE | 2021-11-04 21:44 | NUR ---
ASSUMED PT CARE FROM PATRICK GAMEZ AT 1915 PT SLEEPING IN BED. SLIGHTLY DIFFICULT TO AROUSE; HOWEVER, PT WAS ON CPAP WITH 2L BLEED IN. PT ALERT AND ORIENTED AND ABLE TO ANSWER QUESTIONS APPROPRIATELY. NOTED TO BE VERY LETHARGIC HE WOULD FALL BACK TO SLEEP INSTANTLY. DIALYSIS PATIENT WITH PERMACATH TO RIGHT UPPER CHEST WALL; ESTABLISHED FISTULA TO RIGHT ARM; THEREFORE, BP'S BEING TAKEN ON LEFT FOREARM. STABLE BP'S AT THIS TIME WITH SYSTOLIC NOTED TO BE 120'S, SEE FLOWSHEET. PT NOTED TO BE NSR WITH HR 80'S, WHICH CHANGED AROUND 1845 FROM AFIB. PT IS FAIRLY WEAK AND NEEDS ASSISTANCE WITH REPOSITIONING. CALL LIGHT IS WITHIN REACH AND PT CAN MAKE NEEDS KNOWN. SEE SHIFT SUMMARY FOR FURTHER DETAILS.
[2021-11-05 04:01] LABS: Hematocrit 26.8 % (37.0-53.0); Hemoglobin 8.5 g/dL (13.5-17.5)
--- NOTE | 2021-11-05 04:19 | NUR ---
END OF SHIFT SUMMARY NO SIGNIFICANT CHANGES NOTED THIS SHIFT. PT SLEPT MOST OF NIGHT WITH CPAP IN PLACE AND 2L BLEED IN. TMAX 100.7 IN WHICH PT WAS GIVEN A FAN. VSS, SEE FLOWSHEET. PT REMAINED NSR THIS SHIFT WITH RATE 80'S. NO VOID THIS SHIFT; HOWEVER, PT IS A DIALYSIS PATIENT. PT REMAINS SALINE LOCKED; ABLE TO DRINK THIN LIQUIDS INDEPENDENTLY. DECLINED REPOSITIONING T/O NIGHT D/T LOWER BACK PAIN; PT IS ABLE TO SHIFT HIPS SLIGHTLY, BUT UNABLE TO MAKE MAJOR REPOSITIONS. WILL CONTINUE TO MONITOR UNTIL REPORT IS HANDED OFF TO ONCOMING RN.
[2021-11-05 04:33] LABS: Magnesium, Blood 2.3 mg/dL (1.6-2.4)
[2021-11-05 04:39] LABS: Albumin, Blood 1.9 g/dL (3.4-5.0); Anion Gap 14 mmol/L (6-16); Blood Urea Nitrogen 79 mg/dL (8-24); CO2, Blood 25 mmol/L (21-32); Calcium, Blood 8.6 mg/dL (8.5-10.1); Chloride, Blood 93 mmol/L (98-108); Creatinine, Blood 9.83 mg/dL (0.60-1.20); Glomerular Filtration Rate 5 (60-); Glucose, Blood 242 mg/dL (70-99); Phosphorus, Blood 6.2 mg/dL (2.5-4.9); Potassium, Blood 3.6 mmol/L (3.5-5.5); Sodium, Blood 132 mmol/L (136-145)
--- NOTE | 2021-11-05 10:10 | NUR ---
DIAYLSIS IN PROCESS, WILL MEDICATE WITH AM MEDS WHEN COMPLETE.
[2021-11-05 10:48] LABS: Adenovirus F 40/41 Not Detected (NOT DETECT); Astrovirus Not Detected (NOT DETECT); Campylobacter Sp Not Detected (NOT DETECT); Cryptosporidium Not Detected (NOT DETECT); Cyclospora Cayetanensis Not Detected (NOT DETECT); E. Coli O157 Not Detected (NOT DETECT); Entamoeba Histolytica Not Detected (NOT DETECT); Enteroaggregative E. coli-EAEC Not Detected (NOT DETECT); Enteropathogenic E. coli-EPEC Not Detected (NOT DETECT); Enterotoxigenic E. coli-ETEC Not Detected (NOT DETECT); Giardia Lamblia Not Detected (NOT DETECT); Norovirus GI/GII Not Detected (NOT DETECT); Plesiomonas Shigelloides Not Detected (NOT DETECT); Rotavirus A Not Detected (NOT DETECT); Salmonella Sp Not Detected (NOT DETECT); Sapovirus Not Detected (NOT DETECT); Shiga Toxin-prod E. coli-STEC Not Detected (NOT DETECT); Shigella/Enteroin E. coli-EIEC Not Detected (NOT DETECT); Vibrio Cholerae Not Detected (NOT DETECT); Vibrio Sp Not Detected (NOT DETECT); Yersinia Enterocolitica Not Detected (NOT DETECT)
[2021-11-05 12:32] LABS: Vancomycin, Random 14.8 ug/mL
--- NOTE | 2021-11-05 18:29 | NUR ---
SHIFT SUMMARY; ASSUMED CARE AT 0700. LETHARGIC BUT RESPONDS TO VERBAL STIMULI. A/A/OX3, INTERMITANT CONFUSION DURING SHIFT. DIALYSIS COMPLETE TODAY, VSS, INSULIN COVERAGE PER EMAR. MINIMAL FOOD INTAKE DURING SHIFT, SWALLOWING PO FLUIDS WITHOUT DIFFICULTY. ASSISTED WITH REPOSITIONING Q2. FOLLOWS COMMANDS BUT WEAK. BILATERAL ARMS ELEVATED ON PILLOWS FOR EDEMA. 2L 02 VIA NC. WILL CONTINUE TO MONITOR AND TREAT UNTIL CHANGE OF SHIFT.
--- NOTE | 2021-11-05 19:32 | NUR ---
ASSUMED PT CARE FROM FRANCO NGUYEN ON DAY SHIFT. PT RESTING IN BED WTIH EYES CLOSED. RESPIRATIONS ARE EVEN AND UNLABORED AT THIS TIME. NO GRIMACING PRESENT ON FACE. APPEARS TO BE RESTING COMFORTABLY AT THIS TIME. SAFETY MEASURES IN PLACE.
[2021-11-06 04:25] LABS: Hematocrit 25.5 % (37.0-53.0); Hemoglobin 7.9 g/dL (13.5-17.5)
[2021-11-06 05:03] LABS: Magnesium, Blood 2.4 mg/dL (1.6-2.4)
[2021-11-06 05:34] LABS: Albumin, Blood 1.7 g/dL (3.4-5.0); Anion Gap 12 mmol/L (6-16); Blood Urea Nitrogen 79 mg/dL (8-24); CO2, Blood 28 mmol/L (21-32); Calcium, Blood 8.6 mg/dL (8.5-10.1); Chloride, Blood 97 mmol/L (98-108); Creatinine, Blood 8.75 mg/dL (0.60-1.20); Glomerular Filtration Rate 6 (60-); Glucose, Blood 239 mg/dL (70-99); Phosphorus, Blood 5.4 mg/dL (2.5-4.9); Potassium, Blood 3.8 mmol/L (3.5-5.5); Sodium, Blood 137 mmol/L (136-145)
--- NOTE | 2021-11-06 15:14 | NUR ---
Upon receiving a referral for spiritual care, I visit pt. Patient is lying in bed and alert. He tells me about his medical conditions and the plan going forward. He then talks about his family, the war between Edgardo and the Devil and his prayer for world peace. Pt also shares his desire to be up and well enough to spend a little more quality time with his family. I listen empathically, normalize pt's concerns and desires, explore options for maximizing his remaining time and provide spiritual guidance and prayer. Patient responds well and shows signs of decreased stress and an elevated mood. I will continue to remain available to patient and family.
[2021-11-06 17:50] LABS: Hematocrit 24.5 % (37.0-53.0); Hemoglobin 7.5 g/dL (13.5-17.5)
--- NOTE | 2021-11-06 18:44 | NUR ---
SHIFT SUMMARY: PT LETHARGIC, AROUSES TO VERBAL STIMULI, MUMBLING AT TIMES AND DIFFICULT TO UNDERSTAND BUT ABLE TO ANSWER YES/NO CLEARLY, FALLS BACK TO SLEEP QUICKLY. O2 FLOW CONTINUES 2 L/MIN VIA NC, O2 SATS >92%. SR ON MONITOR. R ARM NOTE TO BE VERY EDEMATOUS, PT W/HX OF FISTULA TO R ARM W/PROBLEMS SUCH NUMBNESS, DIFFICULT MOVEMENT AND GLUING MACHINE OPERATOR, PROVIDER CONSULTED AND US OF RUE COMPLETED TODAY. PT INCONTINENT OF STOOL X2 THIS SHIFT WITH SECOND BM ZOFIA BALLARD; PROVIDER CONSULTED, SAMPLE COLLECTED AND SENT FOR ANALYSIS. PT TO BE NPO AT MIDNIGHT FOR MICAH TOMORROW. PT ALSO PENDING INTERVENTIONAL RADIOLOGY TOMORROW FOR REMOVAL OF DIALYSIS CATHETER. PT HAS BEEN REPOSITIONED OFTEN, ATTENS IN PLACE AND CHANGED NEEDED. WILL CONTINUE TO MONITOR UNTIL REPORT GIVEN TO ONCOMING RN.
[2021-11-06 18:47] LABS: Stool Occult Blood Guaiac 1 Pos (Neg)
[2021-11-07 01:41] LABS: Hematocrit 23.4 % (37.0-53.0)
[2021-11-07 02:06] LABS: Magnesium, Blood 2.7 mg/dL (1.6-2.4)
[2021-11-07 02:12] LABS: Albumin, Blood 1.6 g/dL (3.4-5.0); Anion Gap 12 mmol/L (6-16); Blood Urea Nitrogen 114 mg/dL (8-24); Bun/Creatinine Ratio 10.9 (12.0-20.0); CO2, Blood 26 mmol/L (21-32); Calcium, Blood 8.9 mg/dL (8.5-10.1); Chloride, Blood 97 mmol/L (98-108); Glomerular Filtration Rate 5 (60-); Glucose, Blood 262 mg/dL (70-99); Phosphorus, Blood 7.2 mg/dL (2.5-4.9); Potassium, Blood 4.1 mmol/L (3.5-5.5); Sodium, Blood 135 mmol/L (136-145)
--- NOTE | 2021-11-07 06:02 | NUR ---
SHIFT SUMMARY ASSUMED CARE OF PT AT 1900. PT IS A/OX4. HEART SOUNDS REGULAR. LUNG SOUNDS DIMINISHED. PT HAD CXR PER MD BENJAMIN PT HAD INCREASED RESPIRATIONS T/O THE NIGHT AND HAD CONCERNS OF FLUID OVERLOAD. MD SAW PT IN ROOM AT AROUND 0330 AND STATED THAT PT LOOKED UNWELL BUT NOT MORE THAN WHEN HE LAST SAW HIM A COUPLE DAYS AGO. DOCTOR AGREED THAT PT NEEDED A UNIT OF BLOOD BUT COULD BE ADMINISTERED DURING DIALYSIS AND WAS NOT URGENT. PT VSS, BUT PT WAS VERY DIAPHORTIC AND WAS HAVING HALLUCINATIONS T/O THE NIGHT, SUCH FEELING A BLANKET ON HIM WHEN THERE ISNT ONE. PT ALSO HAD TO BE REORIENTED BECAUSE HE WAS CALLING OUT FOR "LANCE" AND THOUGHT HE WAS HOME. PT WAS ABLE TO STAND EARLIER IN THE SHIFT WITH A 3P ASSIST TO BSC WITH GAITBELT AND WALKER. STOOL IS BLACK, STICKY AND LOOSE. PT WAS PAINFUL IN HIS HIPS BUT DID NOT WANT TO BE REPOSITIONED, PT OFFERED PAIN MEDICATIONS BUT DID NOT AWAKE TO ANSWER. PT ALSO REFUSED LAST ATTENDS CHANGE. PT R ARM IS VERY SWOLLEN, PT HAD ALOT OF WEAKNESS IN MOVEMENT AND PALM AND BACK FORGER STENGTH IN THIS ARM.
[2021-11-07 07:07] LABS: PCO2 Arterial 49.1 mmHg (35-45); PO2 Arterial 89.4 mmHg (80-100); pH Blood Arterial 7.33 (7.35-7.45)
--- NOTE | 2021-11-07 08:00 | NUR ---
INITIAL ASSESSMENT: Patient is lying supine in bed resting with his eyes closed, resp e/u. He is responsive to verbals stimuli, he is oriented to self only. He tells me that he is in the Emergency Room when I ask him where he is. He is very lethargic, falling back asleep quickly when I am not talking to him. He is mumbling, difficult to understand. He denies pain at this time. HRR, SR with PVCs in the 60s. ABD distended and BT hyperactive. PPP. His RUE is very edematous. He has a fistula right above the right AC, able to hear via doppler. Perma cath to right chest with CHG dressing, CDI. VSS this am. Due to patient being NPO fo GIB and his lethargy AM PO medications held. Plan for a MICAH this am with anesthesia at 9 am with dialysis to follow. Call light in MIRIAM rinaldi.
--- NOTE | 2021-11-07 10:49 | NUR ---
Update: MICAH was delyaed due to patients mentation changes and a drop in blood pressure. Cardiology will continue to follow patient and reattempt when patient is more alert and oriented. Patient was taken down to dialysis. Dr. Jones has been to see the patient he will take the patient down to the laborer salvage today to remove perma cath. Patient is resting comfortably, he is a little more alert, but still difficult to understand. He denies needs at this time. Call light in reach. TM.
[2021-11-07 13:07] LABS: BASOPHILS ABSOLUTE AUTO 0.04 K/mm3 (0.00-0.23); BASOPHILS PERCENT AUTO 0 % (0-2); EOSINOPHILS ABSOLUTE AUTO 0.24 K/mm3 (0.00-0.68); EOSINOPHILS PERCENT AUTO 2 % (0-6); Hematocrit 25.8 % (37.0-53.0); Hemoglobin 8.1 g/dL (13.5-17.5); IMMATURE GRAN ABSOLUTE AUTO 0.74 K/mm3 (0.00-0.10); IMMATURE GRAN PERCENT AUTO 5 % (0-1); LYMPHOCYTES ABSOLUTE AUTO 0.89 K/mm3 (0.84-5.20); LYMPHOCYTES PERCENT AUTO 6 % (21-46); MONOCYTES ABSOLUTE AUTO 0.88 K/mm3 (0.16-1.47); MONOCYTES PERCENT AUTO 5 % (4-13); Mean Corpuscular HGB 29.9 pg (26.0-34.0); Mean Corpuscular HGB Conc 31.4 g/dL (31.5-36.5); Mean Corpuscular Volume 95 fL (80-100); NEUTROPHILS ABSOLUTE AUTO 13.37 K/mm3 (1.96-9.15); NEUTROPHILS PERCENT AUTO 83 % (41-73); NRBC ABSOLUTE 0.07 K/mm3 (0.00-0.02); NRBC Auto 0.4 /100 WBC (0.0-0.2); Platelet Count 353 K/mm3 (150-400); RDW Coefficient Variation 14.8 % (11.7-14.2); RDW Standard Deviation 51.7 fL (35.1-46.3); Red Blood Cell Count 2.71 M/mm3 (4.30-5.90); White Blood Cell Count 16.16 K/mm3 (4.00-11.30)
--- NOTE | 2021-11-07 15:30 | NUR ---
Update: Patient is now awake, alert and oriented. He states, "I watched a movie and its like I got stuck in it. You were at my bedside earlier and there were other people beside you that were walking into the parker." coal unloader talked with GI about coming to see the patient. GI stated he would talk with the anesthesiologist about scoping the patient in ICU. Cardiology updated as to patients improved neuro status-he will coordinate with the heart center for MICAH. IR will come and remove Perma cath at bedside around 1600-supplies at bedside. VSS. Patient denies other needs at this time. Call light in reach. WCTM.
--- NOTE | 2021-11-07 15:30 | NUR ---
Spiritual care visit conducted. Patient talks about his connection to God and how God speaks to him and strengthens him. I provide companionship, emotional support and prayer. Pt engages well and voices appreciation for the visit.
--- NOTE | 2021-11-07 17:41 | NUR ---
Summary: Patient was lethargic this am and oriented to self only, as the day progressed and after dialysis patient became more oriented and able to stay awake without stimuli. He was also hallucinating this morning and is not this afternoon. He C/O pain in his neck and shoulders once this morning he was medicated with tylenol. HRR this shift, he has maintained SR in the 60s-70s this shift. He has 4+ pitting edema to RUE-Dr. Jones to evaluate. Perma cath to right upper chest, plan for this to be pulled by Dr. Jones this shift-supplies at bedside-suspect site for infection. LS Dim t/o, biox has been stable on RA, while he is sleeping he is on his home c-pap with a bleed in of 2l. BT +, his guiac last night was positive. Dr. Zayas is here to see the patient plan for an EGD this evening. HGB was 7 at, 1 U PRBCs infused with dialysis hgb increased to 8. Patient had one very small dark maroon stool. Patient is resting with his eyes closed, denies needs at this time. Call light in reach, TM.
--- NOTE | 2021-11-07 19:27 | NUR ---
TO [facility] WITH [facility] STARTED.
--- NOTE | 2021-11-07 19:56 | NUR ---
11/07/211955 Taco Seth See Anesthesia record. DR FRANCOIS
[2021-11-08 00:39] LABS: Hematocrit 24.3 % (37.0-53.0); Hemoglobin 7.5 g/dL (13.5-17.5)
--- NOTE | 2021-11-08 05:49 | NUR ---
SHIFT SUMMARY ASSUMED CARE OF PT AT 1900. PT IS A/OX4. HEART SOUNDS REGULAR, LUNG SOUNDS DIMINISHED AT BASES. PT WROSE CPAP MOST OF THE NIGHT. PT WAS LETHARGIC AFTER EDG BUT RECOVERED QUICKLY. PT SLEPT T/O THE NIGHT. NO ACUTE EVENTS.
[2021-11-08 07:58] LABS: Hematocrit 24.6 % (37.0-53.0); Hemoglobin 7.3 g/dL (13.5-17.5)
[2021-11-08 08:27] LABS: Magnesium, Blood 2.8 mg/dL (1.6-2.4)
[2021-11-08 08:46] LABS: Albumin, Blood 1.6 g/dL (3.4-5.0); Anion Gap 12 mmol/L (6-16); Blood Urea Nitrogen 95 mg/dL (8-24); Bun/Creatinine Ratio 9.7 (12.0-20.0); CO2, Blood 28 mmol/L (21-32); Calcium, Blood 8.8 mg/dL (8.5-10.1); Chloride, Blood 100 mmol/L (98-108); Creatinine, Blood 9.84 mg/dL (0.60-1.20); Glomerular Filtration Rate 5 (60-); Glucose, Blood 198 mg/dL (70-99); Phosphorus, Blood 6.8 mg/dL (2.5-4.9); Potassium, Blood 3.9 mmol/L (3.5-5.5); Sodium, Blood 140 mmol/L (136-145)
[2021-11-08 16:28] LABS: Hematocrit 23.9 % (37.0-53.0); Hemoglobin 7.3 g/dL (13.5-17.5)
--- NOTE | 2021-11-08 18:13 | NUR ---
SHIFT SUMMARY PT A&Ox4, SPO2>92 RA, VSS. PT NPO AT MIDNIGHT FOR POTENTIAL MICAH SCHEDULED AT 0700 11/09. RIGHT ARM SIGNIFICANTLY SWOLLEN, ELEVATED ON PILLOWS. RUE US DONE IN ROOM. FAMILY AT BEDSIDE DURING MOST OF THE DAY. NO EVENTS DURING THE DAY. WILL CONTINUE TO MONITOR AND PROVIDE CARE UNTIL REPORT TO NOC.
--- NOTE | 2021-11-08 18:42 | NUR ---
this nurse agrees w/ student nurse documention this shift.
[2021-11-09 04:38] LABS: BASOPHILS ABSOLUTE AUTO 0.03 K/mm3 (0.00-0.23); BASOPHILS PERCENT AUTO 0 % (0-2); EOSINOPHILS ABSOLUTE AUTO 0.18 K/mm3 (0.00-0.68); EOSINOPHILS PERCENT AUTO 1 % (0-6); Hematocrit 23.1 % (37.0-53.0); Hemoglobin 7.2 g/dL (13.5-17.5); IMMATURE GRAN PERCENT AUTO 4 % (0-1); LYMPHOCYTES PERCENT AUTO 7 % (21-46); MONOCYTES ABSOLUTE AUTO 0.69 K/mm3 (0.16-1.47); MONOCYTES PERCENT AUTO 5 % (4-13); Mean Corpuscular HGB 29.9 pg (26.0-34.0); Mean Corpuscular HGB Conc 31.2 g/dL (31.5-36.5); Mean Corpuscular Volume 96 fL (80-100); Mean Platelet Volume 10.1 fL (9.1-12.4); NEUTROPHILS ABSOLUTE AUTO 10.81 K/mm3 (1.96-9.15); NEUTROPHILS PERCENT AUTO 82 % (41-73); NRBC ABSOLUTE 0.04 K/mm3 (0.00-0.02); NRBC Auto 0.3 /100 WBC (0.0-0.2); Platelet Count 342 K/mm3 (150-400); RDW Coefficient Variation 15.1 % (11.7-14.2); RDW Standard Deviation 52.5 fL (35.1-46.3); Red Blood Cell Count 2.41 M/mm3 (4.30-5.90); White Blood Cell Count 13.11 K/mm3 (4.00-11.30)
[2021-11-09 06:23] LABS: Albumin, Blood 1.6 g/dL (3.4-5.0); Anion Gap 12 mmol/L (6-16); Blood Urea Nitrogen 110 mg/dL (8-24); CO2, Blood 28 mmol/L (21-32); Calcium, Blood 8.6 mg/dL (8.5-10.1); Chloride, Blood 97 mmol/L (98-108); Glomerular Filtration Rate 5 (60-); Glucose, Blood 268 mg/dL (70-99); Phosphorus, Blood 5.8 mg/dL (2.5-4.9); Potassium, Blood 3.8 mmol/L (3.5-5.5); Sodium, Blood 137 mmol/L (136-145)
--- NOTE | 2021-11-09 06:41 | NUR ---
SHIFT SUMMARY ASSUMED CARE OF POT AT 1900. PT IS A/OX4. HEART SOUNDS REGULAR.TELE SHOWS SINUS. LUNG SOUNDS DIMINISHED AT THE BASES. PT WORE CPAP T/O THE NIGHT. PT NOSE IS SORE FROM CPAP AND HAS SOME BLOOD ON IN. PT R ARM IS SWOLLEN STILL, FISTULA HEARD BUT FAINT. KIRTI SAW PT THIS AM AND WANTS DIALYSIS AFTER PT GETS PERMACATH IN, PERMITTING BLOOD CULTURES NEGATIVE. NURSE ROMI IN ROOM SETTING UP FOR MICAH THIS AM AT 7.
--- NOTE | 2021-11-09 07:59 | NUR ---
PT TOLERATES MICAH PROCEDURE WITH ANESTHESIA WELL. LUCI.BRANDON. PT ALERT. CONTINOUSE MONITORING IN PLACE. SEE ANESTHESIA SHEET. REPORT GIVEN TO FRANCO QIU RN TO ASSUME CARE.
--- NOTE | 2021-11-09 14:15 | NUR ---
TAKEN TO [facility]ART [facility] FOR DIAYLISIS CATH AT 1200, TAKEN TO DIAYLSIS AFTER.
--- NOTE | 2021-11-09 15:09 | NUR ---
DIALYSIS TX TERMINATED EARLY R/T ELEVATED CVC DYSFUNCTION LIKEY R/T SWELLING AND FREQUENT POSITION CHANGES DUE TO PT DISCOFORT. MESSAGE LEFT FOR MD TO NOTIFY AND PLANS FOR DIALYSIS TX TOMORROW. PT RAN FOR 40 MINUTES TODAY WITH 0 UF OBTATINED. REPROT GIVEN TO BEDSIDE RN.
[2021-11-09 16:20] LABS: Hemoglobin 7.1 g/dL (13.5-17.5)
--- NOTE | 2021-11-09 16:49 | NUR ---
SHIFT SUMMARY PT IS ALERT AND ORIENTED, HE CONVERSES WELL AND IS VERY COOPERATIVE. MEDICATED PER EMAR, GIVEN 650MG TYLENOL PRN FOR GENERALIZED PAIN. HE HAD A MICAH THIS MORNING THAT ALLOWED A TEMPORARTY PORT PLACEMENT ON HIS NECK, BUT DIALYSIS WAS NOT ABLE TO USE SO THEY ARE TRYING [facility] TOMORROW. NO OUTPUT HAS BEEN SEEN SINCE DIALYSIS ON 11/07. SEVERE EDEMA AND PAIN PERSISTS ON RIGHT ARM, AND SOME IN LOWER EXTREMITIES. NO ACUTE CHANGES IN VITALS. SR IN 70-80'S, SYSTOLIC 100-130. DIET WAS ADVANCED TO FULL MEALS ON RENAL DIET PER PIETRE ORDER. WILL CONTINUE TO MONITOR.
[2021-11-10 05:33] LABS: Hematocrit 22.5 % (37.0-53.0); Mean Corpuscular HGB 29.8 pg (26.0-34.0); Mean Corpuscular HGB Conc 31.1 g/dL (31.5-36.5); Mean Corpuscular Volume 96 fL (80-100); Mean Platelet Volume 10.3 fL (9.1-12.4); NRBC ABSOLUTE 0.04 K/mm3 (0.00-0.02); NRBC Auto 0.3 /100 WBC (0.0-0.2); Platelet Count 314 K/mm3 (150-400); RDW Coefficient Variation 15.1 % (11.7-14.2); RDW Standard Deviation 52.2 fL (35.1-46.3); Red Blood Cell Count 2.35 M/mm3 (4.30-5.90); White Blood Cell Count 12.79 K/mm3 (4.00-11.30)
--- NOTE | 2021-11-10 06:14 | NUR ---
SHIFT SUMMARY ASSUMED CARE OF PT AT 1900. PT IS A/OX3 WITH CONFUSION. FOR EXAMPLE, PT THOUGHT THAT HE WAS AT HOME AND CALLED FOR HIS SON LANCE. PT IS ALSO HALLUCINATING, SAYING HE THINKS HE SEES THINGS ON HIS TRY TABLE BUT THEN FEELS WITH HIS HAND AND THERES NOTHING. PT STATES HE HAS TO KEEP HIS EYES CLOSED OR ELSE HE KEEPS SEEING THINGS. HEART SOUNDS REGULAR, LUNG SOUNDS DIMINISHED. PT WAS VERY AGITATED T/O THE NIGHT AND DID NOT WEAR HIS CPAP MUCH. PT WAS ON 2L NC DUE TO DESATURATION TO 88% WHILE ROLLING IN BED. PT DID HAVE AN INCONTIENT VOID AND SMEARS OF DARK BROWN/GREEN LIQUID STOOL. PT HAS A NEW SORE ON HIS L BUTTOCK, MEPILEX APPLIED AND PT TURNED Q2. PT R ARM IS STILL SWOLLEN, FISTULA DIFFICULT TO HEAR/ FEEL.
[2021-11-10 06:15] LABS: Albumin, Blood 1.5 g/dL (3.4-5.0); Anion Gap 12 mmol/L (6-16); Blood Urea Nitrogen 113 mg/dL (8-24); Bun/Creatinine Ratio 9.5 (12.0-20.0); CO2, Blood 27 mmol/L (21-32); Chloride, Blood 99 mmol/L (98-108); Glomerular Filtration Rate 4 (60-); Glucose, Blood 200 mg/dL (70-99); Potassium, Blood 3.8 mmol/L (3.5-5.5); Sodium, Blood 138 mmol/L (136-145)
[2021-11-10 15:05] LABS: Hematocrit 27.5 % (37.0-53.0); Hemoglobin 8.2 g/dL (13.5-17.5)
--- NOTE | 2021-11-10 16:52 | NUR ---
Shift Summary Pt continued to experience hallucinations the day, A&Ox3. He went to dialysis from 0900 to about 1200, they reported blood pressure running high, but after continuing morning medications after dialysis, his blood pressure came back to baseline. He is becoming anxious and wants to leave, will continue to monitor w his hallucinations.
[2021-11-11 04:50] LABS: Hematocrit 26.3 % (37.0-53.0); Hemoglobin 8.3 g/dL (13.5-17.5)
[2021-11-11 05:22] LABS: Albumin, Blood 1.7 g/dL (3.4-5.0); Anion Gap 14 mmol/L (6-16); Blood Urea Nitrogen 80 mg/dL (8-24); Bun/Creatinine Ratio 8.8 (12.0-20.0); CO2, Blood 26 mmol/L (21-32); Chloride, Blood 102 mmol/L (98-108); Creatinine, Blood 9.05 mg/dL (0.60-1.20); Glomerular Filtration Rate 6 (60-); Glucose, Blood 225 mg/dL (70-99); Phosphorus, Blood 5.2 mg/dL (2.5-4.9); Potassium, Blood 3.9 mmol/L (3.5-5.5); Sodium, Blood 142 mmol/L (136-145)
--- NOTE | 2021-11-11 06:38 | NUR ---
NOC SHIFT SUMMARY PT ORIENTED X1-3 OVERNIGHT. LETHARGIC, MUMBLES RESPONSES WITH OCCASIONAL CLEAR SPEECH WHEN ASKED TO REPEAT. IVY. HALLUCINATIONS REPORTED BY PATIENT - ASKED REPEATEDLY IF I SAW SOMEONE "FIGHTING" WORE CPAP OR 2L NC OVERNIGHT. VSS PER PT TREND. LUNGS DIM W/SHALLOW BREATHING. PT OLIGURIC WITH ONE SMALL UNMEASURED URINE OCCURENCE. BM X1. R ARM WITH SIGNIFICANT SWELLING - MD AWARE. ARM ELEVATED ON 2 PILLOWS. Q2 TURN. 0405 - PAGED ON-CALL MD DR. RODRIGUEZ REGARDING CONCERNS ABOUT CHANGE IN MENTATION. NOTIFIED PROVIDER OF DECLINING RESPONSIVENESS OVERNIGHT AND PT ONLY ORIENTED X1, DELAYED RESPONSES AND NONSENSICAL SPEECH. NO NEW ORDERS AT THIS TIME. WILL MONITOR CLOSELY AND PASS ON TO DAY RN
--- NOTE | 2021-11-11 17:30 | NUR ---
SHIFT SUMMARY PT IS ALERT AND ORIENTED X4, HE IS HAVING LESS HALLUCINATIONS TODAY AND IS A LOT MORE INVOLVED AND MOTIVATED. NO ACUTE CHANGES. SINUS RHYTHM, CHANGED TO MED NO TELE. 1 LITER FLUID RESTRICTION AND STILL NO MEASURED OR INCONTINENT OUTPUT. I HAVE BEEN ROTATING HIM EVERY FEW HOURS TO RELIEVE PRESSURE OF HIS BOTTOM. LATE IN THE SHIFT HE REPORTED DIFFICULTY SWALLOWING, MECH SOFT TRAY AND SPEECH EVAL PUT IN FOR TOMMOROW. WILL CONTINUE TO MONITOR.
--- NOTE | 2021-11-11 22:23 | NUR ---
ASSUMPTION OF CARE: PATIENT LETHARGIC, SLOW TO RESPOND, A&O X2 WITH SLIGHTLY GARBLED SPEECH. STATED HE COULD SWALLOW EVENING MEDICATIONS, BUT HELD THEM IN HIS MOUTH ALONG WITH THE APPLESAUCE THEY WERE ADMINISTERED WITH. METOPROLOL WAS SUCCESSFULLY ADMINISTERED, BUT OTHER PO MEDS WERE SWEPT OUT OF MOUTH AND PATIENT WAS SUCTIONED TO PREVENT ASPIRATION.
[2021-11-12 03:57] LABS: Hematocrit 25.3 % (37.0-53.0); Hemoglobin 7.4 g/dL (13.5-17.5)
[2021-11-12 04:24] LABS: Magnesium, Blood 3.3 mg/dL (1.6-2.4)
[2021-11-12 04:26] LABS: Albumin, Blood 1.6 g/dL (3.4-5.0); Anion Gap 11 mmol/L (6-16); Blood Urea Nitrogen 95 mg/dL (8-24); Bun/Creatinine Ratio 7.8 (12.0-20.0); CO2, Blood 30 mmol/L (21-32); Calcium, Blood 9.1 mg/dL (8.5-10.1); Chloride, Blood 102 mmol/L (98-108); Glomerular Filtration Rate 4 (60-); Glucose, Blood 209 mg/dL (70-99); Phosphorus, Blood 7.8 mg/dL (2.5-4.9); Potassium, Blood 4.1 mmol/L (3.5-5.5); Sodium, Blood 143 mmol/L (136-145)
--- NOTE | 2021-11-12 06:10 | NUR ---
SHIFT SUMMARY: PATIENT LETHARGIC AND NONVERBAL MOST OF THE SHIFT. ORIENTED TO SELF. IN LUCID MOMENTS WOULD ASK FOR WATER AND SUCCESSFULLY DRINK. STATED HE IS AFRAID OF BEING ALONE IN THE HOSPITAL - PROVIDED THERAPEUTIC LISTENING. AM LABS TRENDING FOR THE WORSE - SCHEDULED FOR DIALYSIS TODAY. POWERGLIDE WAS COMPROMISED ON ASSESSMENT SO WAS D/C'D - NO ONE AVAILABLE IN PCU OR ICU TO INSERT A NEW ONE THIS SHIFT. IV IN LEFT FOREARM PATENT. WILL CONTINUE TO MONITOR AND REPORT TO ONCOMING RN.
[2021-11-12 08:57] LABS: Hematocrit 25.3 % (37.0-53.0); Hemoglobin 7.5 g/dL (13.5-17.5)
--- NOTE | 2021-11-12 11:30 | NUR ---
DIALYSIS ABLE TO KEEP CATH RUNNING FOR 1 HOUR AND 7 MIN WITH A BFR 200 ML. CONSTANT ARTERIAL ALARMS. AFRAID OF IT CLOTTING IN SPITE OF HEPARIN DUE TO THE CONSTANT STOPPING WITH THE ALARMS. SWITCHED AND FLUSHED PORTS SEVERAL TIMES. CHANGED PT'S POSITION MULTIPLE TIMES. CALLED DR FERNÁNDEZ, HE IS UNAVAILABLE UNTIL FRIDAY. CALLED AND TALKED TO MALLIKA BUCK. SHE IS GOING REPORT TO DR. CURIEL.
--- NOTE | 2021-11-12 12:44 | NUR ---
DUE TO POOR FLOW FROM DIALYSIS CATHETER RESULTING IN ABREVIATED DIALYSIS TREATMENT THIS MORNING, ACTIVASE, ORDERED BY DR COTTO, INSTILLED IN EACH PORT OF THE DIALYSIS CVC FOR OVERNIGHT DWELL. CVC WILL BE RE-ASSESSED IN THE AM.
[2021-11-12 13:09] LABS: Percent Saturation 19.4 % (20.0-50.0)
[2021-11-12 13:23] LABS: IMMATURE RETIC FRACTION 25.8 % (2.3-16.0); RETIC HGB EQUIVALENT 23.8 pg (28.20-36.60); RETICULOCYTE ABSOLUTE 0.084 M/mm3 (0.0200-0.1100); RETICULOCYTE COUNT PERCENT 3.27 % (0.50-2.50)
--- NOTE | 2021-11-12 18:07 | NUR ---
SHIFT SUMMARY PT HAS BEEN SLEEPING OFF AND ON ALL DAY. PT WILL ROUSE TO VERBAL STIMULI BUT QUICKLY RETURNS TO A SLEEPING STATE. PT HAS HAD DIFFICULTY RAISING ARMS. PT WILL GRIMACE AND CRY OUT IN PAIN DURING ANY REPOSITIONING AND DURING MOST CARES. SBP HAS RANGED 115-162, SPO2 >90% ON 2L NC. PT UNABLE TO USE CALL LIGHT, INCREASED ROUNDING FREQUENCY IN RESPONSE. PT HAS BEEN REPOSITIONED A MINIMUM OF EVERY 2 HOURS, PT DID NOT TOLERATE REPOSITIONING WELL.
[2021-11-13 04:09] LABS: BASOPHILS ABSOLUTE AUTO 0.03 K/mm3 (0.00-0.23); BASOPHILS PERCENT AUTO 0 % (0-2); EOSINOPHILS ABSOLUTE AUTO 0.14 K/mm3 (0.00-0.68); EOSINOPHILS PERCENT AUTO 1 % (0-6); Hematocrit 21.9 % (37.0-53.0); Hemoglobin 6.5 g/dL (13.5-17.5); IMMATURE GRAN ABSOLUTE AUTO 0.18 K/mm3 (0.00-0.10); IMMATURE GRAN PERCENT AUTO 2 % (0-1); LYMPHOCYTES ABSOLUTE AUTO 0.71 K/mm3 (0.84-5.20); LYMPHOCYTES PERCENT AUTO 7 % (21-46); MONOCYTES ABSOLUTE AUTO 0.66 K/mm3 (0.16-1.47); MONOCYTES PERCENT AUTO 7 % (4-13); Mean Corpuscular HGB 28.9 pg (26.0-34.0); Mean Corpuscular HGB Conc 29.7 g/dL (31.5-36.5); Mean Corpuscular Volume 97 fL (80-100); Mean Platelet Volume 10.5 fL (9.1-12.4); NEUTROPHILS ABSOLUTE AUTO 8.51 K/mm3 (1.96-9.15); NEUTROPHILS PERCENT AUTO 83 % (41-73); Platelet Count 312 K/mm3 (150-400); RDW Coefficient Variation 16.4 % (11.7-14.2); RDW Standard Deviation 58.3 fL (35.1-46.3); Red Blood Cell Count 2.25 M/mm3 (4.30-5.90); White Blood Cell Count 10.23 K/mm3 (4.00-11.30)
[2021-11-13 04:35] LABS: Magnesium, Blood 3.1 mg/dL (1.6-2.4)
[2021-11-13 05:11] LABS: Albumin, Blood 1.4 g/dL (3.4-5.0); Anion Gap 12 mmol/L (6-16); Blood Urea Nitrogen 104 mg/dL (8-24); Bun/Creatinine Ratio 8.2 (12.0-20.0); CO2, Blood 28 mmol/L (21-32); Calcium, Blood 8.3 mg/dL (8.5-10.1); Chloride, Blood 102 mmol/L (98-108); Glomerular Filtration Rate 4 (60-); Glucose, Blood 291 mg/dL (70-99); Phosphorus, Blood 7.2 mg/dL (2.5-4.9); Potassium, Blood 4.2 mmol/L (3.5-5.5); Sodium, Blood 142 mmol/L (136-145)
--- NOTE | 2021-11-13 06:08 | NUR ---
NO ACUTE EVENTS OVERNIGHT. PT ADMITTED TO PCU 17 FROM THE ER AT 23:50. VANCOMYCIN AND CEFEPIME ADMINISTERED ORDERED. NO COMPLAINTS OF PAIN OR DISCOMFORT. FEBRILE AT 101.1 UPON ADMISSION AND LATER WAS LOWER AT 99.4. PRESENTED WITH WHAT LOOKS LIKE PURPURA VS PETECHIAE TO NECK, CHEST AND THIGHS THAT APPEARED FOLLOWING CHEMOTHERAPY TREATMENT A WEEK AGO. PT'S GAIT IS STEADY, AMBULATES WELL INDEPENDENTLY. INDEPENDENT WITH ADLs. PT REPORTS REDUCED APPETITE DUE TO FOOD "TASTING BAD" FOLLOWING RECENT CHEMOTHERAPY. NEUTRIOPENIC PRECAUTIONS IN PLACE ADMITTED WITH PANCYTOPENIA. SLIGHT IMPROVEMENT IN PLATELETS FROM 0 TO 29, AND IN WBCs FROM 0.374 TO 0.54.
--- NOTE | 2021-11-13 06:32 | NUR ---
PT ORIENTED TO SELF, PLACE, ISSUES WITH HEMODIALYSIS AND FOLLOWING DIRECTIONS. PT COMPLAINS OF PAIN WITH MINIMAL TOUCHING AND MOVEMENT. SWELLING TO RIGHT ARM WHERE THERE IS KNOWN ARTERIAL OCCLUSION. PT IS UNABLE TO REPOSITION HIMSELF AND REQUIRES MAX ASSISTANCE FROM STAFF OF 2 - 3 PEOPLE FOR TURNS AND [facility]. REPOSITIONED Q 2 HOURS FROM RIGHT TO LEFT TO FLOATING HIPS IN FOWLERS POSITION. PT DID HAVE A SMALL, BLACK LIQUID, COFFEE GROUND LIKE STOOL EARLY IN THE SHIFT. DR. ROBERTS WAS AT THE BEDSIDE AND ABLE TO SEE THE STOOL CONTENTS. ORDERS RECEIVED FOR IV PANTOPRAZOLE, CLEAR LIQUID DIET, AND FOR TELEMETRY MONITORING. PT HAS A KNOWN GI BLEED SECONDARY TO BLEEDING DUODENAL ULCERS. PT SEEMS TO MANAGE NECTAR THICKENED LIQUIDS BETTER WHEN TAKEN VIA SPOON VS DRINKING FROM THE CUP. TOLERATED MEDICATIONS WELL ADMINISTERED WITH APPLESAUCE. CREATININE SLIGHTLY INCREASED FROM 12.2 TO 12.7 WITH THIS MORNING'S LABS. HEMOGLOBIN/HEMATOCRIT DROPPED TO 6.5/21.9 FROM 7.5/25.3. DR. COTTO ADVISED OF HGG/HCT LEVELS AND ORDERED RECEIVED TO TRANSFUSE U UNIT PRBCs IN DIALYSIS TODAY, WHICH IS PLANNED FOR 08:45.
[2021-11-13 10:06] LABS: BASOPHILS ABSOLUTE AUTO 0.06 K/mm3 (0.00-0.23); BASOPHILS PERCENT AUTO 1 % (0-2); EOSINOPHILS ABSOLUTE AUTO 0.12 K/mm3 (0.00-0.68); EOSINOPHILS PERCENT AUTO 1 % (0-6); Hematocrit 24.1 % (37.0-53.0); Hemoglobin 7.4 g/dL (13.5-17.5); IMMATURE GRAN ABSOLUTE AUTO 0.27 K/mm3 (0.00-0.10); IMMATURE GRAN PERCENT AUTO 2 % (0-1); LYMPHOCYTES ABSOLUTE AUTO 1.01 K/mm3 (0.84-5.20); LYMPHOCYTES PERCENT AUTO 8 % (21-46); MONOCYTES ABSOLUTE AUTO 0.69 K/mm3 (0.16-1.47); MONOCYTES PERCENT AUTO 5 % (4-13); Mean Corpuscular HGB 29.5 pg (26.0-34.0); Mean Corpuscular HGB Conc 30.7 g/dL (31.5-36.5); Mean Corpuscular Volume 96 fL (80-100); Mean Platelet Volume 10.3 fL (9.1-12.4); NEUTROPHILS ABSOLUTE AUTO 10.55 K/mm3 (1.96-9.15); NEUTROPHILS PERCENT AUTO 83 % (41-73); Platelet Count 397 K/mm3 (150-400); RDW Coefficient Variation 15.9 % (11.7-14.2); RDW Standard Deviation 56.1 fL (35.1-46.3); Red Blood Cell Count 2.51 M/mm3 (4.30-5.90)
[2021-11-13 10:09] LABS: Base Excess Venous 0.8 mmol/L; Bicarbonate Venous 24.3 mmol/L (24.0-30.0); PCO2 Venous 50.8 mmHg (38-42); pH Blood Venous 7.33 (7.34-7.37)
[2021-11-13 10:35] LABS: Calcium, Blood 8.5 mg/dL (8.5-10.1); Potassium, Blood 4.3 mmol/L (3.5-5.5)
[2021-11-13 10:37] LABS: Bun/Creatinine Ratio 9.1 (12.0-20.0); Creatinine, Blood 9.46 mg/dL (0.60-1.20)
--- NOTE | 2021-11-13 10:57 | NUR ---
UPDATE PT WAS TRANSPORTED TO DIALYSIS BY BED. THIS RN WAS NOTIFIED OF A DECLINE IN PT CONDITION. UPON ASSESSMENT PT WAS NOT RESPONDING TO VERBAL OR PHYSICAL STIMULI, PT WOULD GROAN AND WITHDRAW FROM PAINFUL STIMULI. A RAPID RESPONSE WAS CALLED. THIS RN REPORTED TO PROVIDER AND ICU RECHECKER AND THEN DEPARTED TO RESUME CARE FOR OTHER PATIENTS. THIS RN WAS NOTIFIED THAT THE PT WOULD BE TRANSFERRED TO ICU AND CALLED REPORT TO RECEIVING RN.
--- NOTE | 2021-11-13 11:10 | NUR ---
INITIAL ASSESSMENT PATIENT ARRIVED FROM DIALYSIS AT 1050. PATIENT MINIMALLY RESPONSIVE TO PAINFUL STIMULI. PATIENT ONLY GRIMACES WITH EYES. NO MOVEMENT OF EXTREMITIES NOTED. PATIENT AFEBRILE. NO SIGNS OF PAIN NOTED. PATIENT SATTING 100% ON BIPAP AT 10/5 AND 30% FIO2. PATIENT IN SB TO SR, HR 50S TO 60S. SBP IN THE LOW 100S. R ARM SWOLLEN FROM OCCLUDED BRACHIOCEPHALIC VEIN. PATIENT REPORTED TO HAVE MELENA ON TERRAZZO WORKER HELPER. PATIENT NPO BECAUSE OF DECREASED LOC. PATIENT ANURIC; DIALYSIS PATIENT. L BUTTOCK ABRASION NOTED UNDER MEPILEX. TEMP HD CATH NOTED TO L IJ. SON AND AWARE OF TRANSFER TO UNIT.
[2021-11-13 14:17] LABS: Hematocrit 22.4 % (37.0-53.0)
--- NOTE | 2021-11-13 16:00 | NUR ---
PATIENT AFEBRILE. PATIENT OPENED EYES BRIEFLY TO PAINFUL STIMULI, SQUEEZED WITH L HAND ON COMMAND, NO MOVEMENT TO R HAND, AND WIGGLED TOES TO NOXIOUS STIMULI. HR IN THE 60S. SBP 90S TO LOW 100S. FIO2 ON CPAP AT 25%. PATIENT HAVING MELENA STOOLS.
--- NOTE | 2021-11-13 16:13 | NUR ---
Rapid response called pt unresponsive. Pt on dialysis. Updated pt son on events. Pt dialysis stopped and blood products stopped. pt moved to icu on bipap. Intesivist involved spoke with son about prognosis. pt kps score is 20% will follow up with intsivist and staff on plan of care.
--- NOTE | 2021-11-13 16:46 | NUR ---
PATIENT TO UNION ORGANIZER.
--- NOTE | 2021-11-13 16:55 | NUR ---
DR. ROBERTS CALLED TO INFORM ABOUT PATIENT'S INCREASED MELENA AT DR. SHIELDS REQUEST. NO ANSWER; MESSAGE LEFT. DR. DE LA GARZA CALLED AND INFORMED. DR. Riley STATED HE WOULD LET DR. ROBERTS KNOW TO CALL ICU.
--- NOTE | 2021-11-13 17:45 | NUR ---
DR. ROBERTS CALLED AGAIN. ABLE TO SPEAK WITH DOCTOR. DR. ROBERTS IS GOING TO SCOPE TONIGHT. WOULD LIKE TO HAVE PATIENT INTUBATED FOR EGD. DR. SHIELDS INFORMED.
--- NOTE | 2021-11-13 18:06 | NUR ---
DIALYSIS DUE TO MULT PRECEDURES BEING DONE AND SCHEDULED TO BE DONE ON PT TONIGHT, DR SHIELDS SAID I COULD DO DIALYSIS IN THE AM.
--- NOTE | 2021-11-13 18:23 | NUR ---
SHIFT SUMMARY PATIENT REMAINED MINIMALLY RESPONSIVE. PATIENT BARELY RESPONDED TO PAINFUL STIMULI BY DR. SHIELDS WHEN ARRIVED TO UNIT. THE MOST THAT PATIENT DID T/O SHIFT WAS OPEN EYES BRIEFLY TO NOXIOUS STIMULI, SQUEEZE WITH L HAND AND WIGGLE TOES WHEN FEET TOUCHED. PATIENT REMAINED AFEBRILE. PATIENT REMAINED ON CPAP 04/10 AND WAS ABLE TO BE DECREASED FROM 30 TO 25% FIO2. LUNGS REMAINED DIMINISHED IN LOWER LOBES. PATIENT REMAINED IN SB TO SR, HR 50S TO 60S. SBP 90S TO 140S. PATIENT PLACED ON LEVOPHED IN LATER AFTERNOON FOR HYPOTENSION. R ARM REMAIN SWOLLEN. PATIENT HAD 2 MELENA STOOLS THIS SHIFT. LAST STOOL XL, LOOSE, MAROON. DR. ROBERTS INFORMED AND IS PLANNING TO SCOPE TONIGHT. DR. SHIELDS ORDERED FOR PROTONIX DRIP. PROTONIX DRIP SENT WITH REAR ADMIRAL STAFF TO START. REAR ADMIRAL ALSO GIVING 2 UNITS PRBCS. NEXT H&H AT 1999. PATIENT REMAINED NPO DUE TO DECREASED LOC. PATIENT REMAINED ANURIC. DR. CURIEL TRYING TO CLEAR OCCLUSION TO BRACHIOCEPHALIC VEIN AND PLACING PERMANENT DIALYSIS CATH IN REAR ADMIRAL WITH PATIENT AT THIS TIME. DR. SHIELDS TO INTUBATE WHEN PATIENT RETURNS AND THEN DR. ROBERTS WILL SCOPE. CTA PERFORMED ON NECK, CHEST AND HEAD THIS SHIFT. DIALYSIS TO BE PERFORMED IN AM. REPORT WILL BE GIVEN TO ASSUMING WATER AND GAS HELPER NURSE SHORTLY.
[2021-11-13 20:28] LABS: Hematocrit 26.1 % (37.0-53.0); Hemoglobin 8.2 g/dL (13.5-17.5)
--- NOTE | 2021-11-13 22:01 | NUR ---
11/13/21 2201 Aydee Chaudhary History, Chart, Medications and Allergies reviewed before start of procedure. PT INTUBATED IN ICU #3 FOR PROCEDURE. MONITOR INTACT WITH CONTINUOUS PULSE OXIMETRY AND INTERMITTENT BP. PT ON PROPOFOL GTT. PATRICK TENA AT BEDSIDE.
--- NOTE | 2021-11-14 02:07 | NUR ---
PT ARRIVED TO ICU FROM BUTTER PRODUCTION SUPERVISOR AT 1950 AFTER RECEIVING 3 STENTS IN THE SVC, BRACHIOCEPHALIC VEIN, AND SVC TO BRACHIOCEPHALIX. ATTEMPTED PERMA HD CATH, BUT UNSUCCESSFUL, 4 POINTS OF ENTRY WITH SUTURES IN PLACE TO BILATERAL ANTERIOR NECK AND CHEST. BEDSIDE REPORT GIVEN BY PATRICK FELIX. HE HAS TEMPORARY HD TRIALYSIS CATH TO RIGHT GROIN WITH ART LINE IN PLACE, BUT NOT WORKING. ART LINE PULLED AND PRESSURE HELD UNTIL HEMOSTASIS. HD CATH DRESSING CHANGED. WEARING CPAP10/5 25%. HE IS MINIMALLY RESPONSIVE TO TO VERBAL STIMULI, RESPONDS TO PAINFUL STIMULI WITH GRIMACING, UNABLE TO FOLLOW COMMANDS. AFEBRILE AT 96.4. PUPILS 3MM, EQUAL, ROUND AND REACTIVE, BRISK. HR IS SR, RATE IN 60-70'S, BP HYPOTENSIVE. HE ARRIVED ON LEVOPHED AT 12MCG/MIN AND WAS INCREASED TO 14MCG/MIN, VASOPRESSIN STARTED. PULSES TO BUE FAINT/THREADY, BLE BY DOPPLER, FAINT. RIGHT ARM IS VERY SWOLLEN AND EDEMATOUS. BP CUFF ON RIGHT LOWER LEG. BT HYPOACTIVE, PT HAD BM AT TIME OF RETURN, MEDIUM SOFT/LOOSE MAROON STOOL. ABRASION TO COCCYX & LEFT BUTTOCK, FOAM DRESSING CHANGED. PG IN [place], INFUSING WITH LEVOPHED, MOVED TO TRIALYSIS CATH. HE RECEIVED 2 UNITS PRBC'S DURING BUTTER PRODUCTION SUPERVISOR PROCEDURE. 2007: DR. CURIEL CALLED AND REPORTED THERE WAS NO ARTERIAL GI BLEEDING NOTED AND PLAN TO PLACE TUNNELED HD CATH TOMORROW. DR. SHIELDS NOTIFIED PT HAS RETURNED FROM BUTTER PRODUCTION SUPERVISOR AND ANTICIPATED INTUBATION FOR UPPER GI SCOPE PROCEDURE. 2021: HGB OF 8.2, HCT OF 26.1 2044: AND RT AT BEDSIDE. 40MCG OF PROPOFOL GIVEN FOR SEDATION. 2047: 50MG ROCURONIUM GIVEN. PT SUCESSFULLY INTUBATED AT 2049. 8.0 ETT, 25CM AT TEETH. LEVOPHED INCREASED TO 17MCG/MIN. VENT SETTINGS AV/VC+ 16/480/T.I. 1.0/5/100%, SPO2 100%. LUNGS CLEAR, DIM IN BASES. PROPOFOL GTT STARTED FOR SEDATION, SEE TITRATIONS ON FLOWSHEET. 2040: DR. ROBERTS CALLED AND NOTIFIED PT INTUBATED. 2225: PROPOFOL OFF D/T LOW BP, LEVOPHED MAXED AT 30MCG/MIN, VASOPRESSIN REMAINS ON. 2229: DR. ROBERTS AND TEAM AT BEDSIDE, EGD PERFORMED. PT'S BP BECAME VERY UNSTABLE, SBP IN 60, DBP 30-20'S. CALL TO DR. SHIELDS AT 2299 RE: HYPOTENSION AND PT CONDITION. ORDERS FOR 1MG EPINEPHRINE NOW AND EPI GTT TO BE STARTED. 2 UNITS PRBC ORDERED. HYDROCORTISONE 50MG IV D0AXIFT ORDERED, AND CEFEPIME 2G ORDERED TO BE GIVEN NOW. CALL PLACED TO PT'S SON TO UPDATE ON STATUS. SON STATES HE WISHES PT TO NO LONGER BE FULL CODE, INTUBATION AND MEDS ONLY AT THIS TIME, [employer]EL PRINTING WORKER SUPERVISOR WITNESSED PHONE CALL. 2299: PT ARRIVED TO BEDSIDE. EGD ENDED AT 2312. PT HAD NUMEROUS BLEEDING ULCERS, NO INTERVENTIONS ABLE TO BE DONE. PT'S , ADRIANA, A CURRENT PT IN PCU, BROUGHT TO BEDSIDE TO SEE . 0030: PT IS MAXED OUT ON LEVOPHED, EPINEPHRINE, AND VASO. PT'S SON, LANCE, IN CONJUNCTION WITH PT'S , ADRIANA, DECIDED TO MAKE HIM COMFORT CARE STATUS. DILAUDID AND ATIVAN GIVEN PER EMAR. PT WAS EXTUBATED AT 0055. PT'S SON AND FAMILY FRIEND AT BEDSIDE. 0112 TIME OF . POST MORTEM CARE DONE. PT'S SON TOOK PERSONAL BELONGINGS HOME CHARTED IN FINAL DISCHARGE. PT NOTED TO HAVE HOME CPAP BAG AND BLANKET LEFT, WAS TAKEN TO , ADRIANA, IN PCU.
== END 2021-11-14 01:12 | DRG 252 ==
LOC: ER 21:39 → ICUE 11-04 02:09 → PCU 11-04 02:09 → ICUE 11-13 10:26
PROVIDERS: Hospitalist; Internal Medicine; Internal Medicine Critical Care Medicine; Internal Medicine Gastroenterology; Internal Medicine Nephrology; Student in an Organized Health Care Education/Training Program; ADMIT Internal Medicine
PROC: 3E03329 Introduction of Other Anti-infective into Peripheral Vein, Percutaneous Approach (ICD-10-PCS; 2021-11-04)
PROC: 0DJ08ZZ Inspection of Upper Intestinal Tract, Via Natural or Artificial Opening Endoscopic (ICD-10-PCS; 2021-11-07)
PROC: 02HV33Z Insertion of Infusion Device into Superior Vena Cava, Percutaneous Approach (ICD-10-PCS; 2021-11-09)
PROC: B548ZZA Ultrasonography of Superior Vena Cava, Guidance (ICD-10-PCS; 2021-11-09)
PROC: 5A1D70Z Performance of Urinary Filtration, Intermittent, Less than 6 Hours Per Day (ICD-10-PCS; 2021-11-09)
PROC: 05743DZ Dilation of Left Innominate Vein with Intraluminal Device, Percutaneous Approach (ICD-10-PCS; 2021-11-13)
PROC: 05733DZ Dilation of Right Innominate Vein with Intraluminal Device, Percutaneous Approach (ICD-10-PCS; 2021-11-13)
PROC: B414YZZ Fluoroscopy of Superior Mesenteric Artery using Other Contrast (ICD-10-PCS; 2021-11-13)
PROC: 0BH18EZ Insertion of Endotracheal Airway into Trachea, Via Natural or Artificial Opening Endoscopic (ICD-10-PCS; 2021-11-13)
PROC: 5A1935Z Respiratory Ventilation, Less than 24 Consecutive Hours (ICD-10-PCS; 2021-11-13)
PROC: 0DJ08ZZ Inspection of Upper Intestinal Tract, Via Natural or Artificial Opening Endoscopic (ICD-10-PCS; 2021-11-13)
PROC: 027V3DZ Dilation of Superior Vena Cava with Intraluminal Device, Percutaneous Approach (ICD-10-PCS; principal; 2021-11-13 21:30)
DX: T80.211A Bloodstream infection due to central venous catheter, initial encounter (principal); A41.01 Sepsis due to Methicillin susceptible Staphylococcus aureus; G92.8 Other toxic encephalopathy; E43 Unspecified severe protein-calorie malnutrition; N18.6 End stage renal disease; J96.01 Acute respiratory failure with hypoxia; K26.4 Chronic or unspecified duodenal ulcer with hemorrhage; R65.20 Severe sepsis without septic shock; Z68.41 Body mass index [BMI] 40.0-44.9, adult; E87.2 Acidosis; N39.0 Urinary tract infection, site not specified; E87.1 Hypo-osmolality and hyponatremia; I87.1 Compression of vein; Z51.5 Encounter for palliative care; Z99.2 Dependence on renal dialysis; I48.91 Unspecified atrial fibrillation; D63.1 Anemia in chronic kidney disease; F32.A Depression, unspecified; G47.30 Sleep apnea, unspecified; Z88.1 Allergy status to other antibiotic agents; Z88.0 Allergy status to penicillin; Z88.2 Allergy status to sulfonamides; Z88.8 Allergy status to other drugs, medicaments and biological substances; Z98.890 Other specified postprocedural states; I95.9 Hypotension, unspecified; Z86.16 Personal history of COVID-19; E11.22 Type 2 diabetes mellitus with diabetic chronic kidney disease; G47.33 Obstructive sleep apnea (adult) (pediatric); E66.01 Morbid (severe) obesity due to excess calories; D64.9 Anemia, unspecified; K20.90 Esophagitis, unspecified without bleeding; K22.70 Barrett's esophagus without dysplasia; E88.09 Other disorders of plasma-protein metabolism, not elsewhere classified; E78.5 Hyperlipidemia, unspecified; E03.9 Hypothyroidism, unspecified; N40.0 Benign prostatic hyperplasia without lower urinary tract symptoms; M19.90 Unspecified osteoarthritis, unspecified site; F43.10 Post-traumatic stress disorder, unspecified; Z90.49 Acquired absence of other specified parts of digestive tract; Z79.899 Other long term (current) drug therapy; Z87.891 Personal history of nicotine dependence
CPT/HCPCS: 31500; 36245; 36415; 36430; 36556; 36600; 37238; 37239; 70450; 70491; 70496; 71045; 71260; 75726; 75827; 75860; 76937; 80048; 80053; 80069; 80202; 81001; 82272; 82607; 82728; 82746; 82803; 82947; 83540; 83550; 83605; 83735; 83880; 84100; 84443; 85014; 85018; 85025; 85027; 85045; 85610; 85730; 86850; 86900; 86901; 86923; 87040; 87077; 87086; 87147; 87186; 87507; 92610; 93005; 93010; 93306; 93312; 93325; 93971; 93990; 94002; 94660; 94762; 96374; 96375; 97110; 97163; 97167; 97530; 97535; 99285-25; A9270; C1725; C1750; C1751; C1752; C1753; C1769; C1887; C1894; C9113; J0171; J0690; J0696; J0881; J1170; J1430; J1644; J1815; J2060; J2250; J2310; J2405; J2704; J2997; J3010; J3370; J7030; J7040; J7060; P9016; P9046; Q9967